=== PATIENT | female | born 1950 | race Caucasian/White ===

== ENCOUNTER 2016-10-16 11:33 | Outpatient (CLI) ==
[2014-08-14 11:02] VITALS: BMI 60.0
== END 2016-10-16 11:34 ==
LOC: AMBL 11:33
PROVIDERS: ATTEND Emergency Medicine
DX: R42 Dizziness and giddiness (principal); R05 Cough; R06.02 Shortness of breath; R50.9 Fever, unspecified; R53.1 Weakness; R41.0 Disorientation, unspecified; R63.0 Anorexia; R00.0 Tachycardia, unspecified; G20 Parkinson's disease; J44.9 Chronic obstructive pulmonary disease, unspecified; Z99.81 Dependence on supplemental oxygen

== ENCOUNTER 2016-11-16 12:15 | Outpatient (CLI) ==
[2014-08-14 11:02] VITALS: BMI 60.0
== END 2016-11-16 12:16 ==
LOC: AMBL 12:15
PROVIDERS: ATTEND Emergency Medicine
DX: R42 Dizziness and giddiness (principal); G20 Parkinson's disease; J44.9 Chronic obstructive pulmonary disease, unspecified; Z99.81 Dependence on supplemental oxygen; W19.XXXA Unspecified fall, initial encounter

== ENCOUNTER 2016-12-30 15:48 | Outpatient (CLI) ==
[2014-08-14 11:02] VITALS: BMI 60.0
== END 2016-12-30 15:49 | disposition home or self-care (01) ==
LOC: AMBL 15:48
PROVIDERS: ATTEND Internal Medicine
DX: R53.1 Weakness (principal); R10.30 Lower abdominal pain, unspecified; R10.2 Pelvic and perineal pain; R39.198 Other difficulties with micturition; R82.99 Other abnormal findings in urine; R00.0 Tachycardia, unspecified; R53.83 Other fatigue; G20 Parkinson's disease

== ENCOUNTER 2017-02-18 11:08 | Outpatient (CLI) ==
[2014-08-14 11:02] VITALS: BMI 60.0
== END 2017-02-18 11:09 | disposition home or self-care (01) ==
LOC: AMBL 11:08
PROVIDERS: ATTEND Emergency Medicine
DX: R26.2 Difficulty in walking, not elsewhere classified (principal); R41.82 Altered mental status, unspecified; M79.605 Pain in left leg; M79.604 Pain in right leg; R25.2 Cramp and spasm; T50.905A Adverse effect of unspecified drugs, medicaments and biological substances, initial encounter; F03.90 Unspecified dementia, unspecified severity, without behavioral disturbance, psychotic disturbance, mood disturbance, and anxiety; G20 Parkinson's disease

== ENCOUNTER → 2017-04-07 | Outpatient (POV) | payer OTHER ==
[2014-08-14 11:02] VITALS: BMI 60.0
== END ==
LOC: OUTPT 00:01
PROVIDERS: ATTEND Otolaryngology
DX: R42 Dizziness and giddiness (principal)
CPT/HCPCS: 92557; 92567

== ENCOUNTER 2018-01-24 13:37 | Emergency (ER) ==
[2018-01-24 13:40] VITALS: BP 120/64; TEMP 97; BMI 49.5
--- NOTE | 2018-01-24 15:23 | ED.PDOC ---
General ED Provider: Dr. MELA MEMBRENO Chief Complaint: Urinary Problem Stated Complaint: suprapubic pain Time Seen by Physician: 13:39 (suprapubic pain with urinary symptoms) Mode of Arrival: Wheelchair Information Source: Patient Exam Limitations: No limitations Primary Care Provider: EYAL JONES Nursing and Triage Documentation Reviewed and Agree: Yes Reviewed sepsis parameters & appropriate labs ordered?: Yes System Inflammatory Response Syndrome: Not Applicable Sepsis Protocol: For patient's 13 years and over: Temp is 96.8 and below OR 101 and greater Pulse >90 BPM Resp >20/minute Acutely Altered Mental Status Are patient's symptoms suggestive of a new infection, such as: -Pneumonia -Skin, Soft Tissue -Endocarditis -UTI -Bone, Joint Infection -Implantable Device -Acute Abdominal Infection -Wound Infection -Meningitis -Blood Stream Catheter Infection -Unknown GI Complaint Exam - Abdominal Pain Complaint/Exam Onset: Gradual Duration: 1week Symptoms Are: Still present Timing: Intermittent Initial Severity: Mild Current Severity: Mild Location of Pain: Discrete Radiates To: Denies: Chest, Back, Flank, LLQ, RLQ, Inguinal Character: Reports: Burning. Denies: Aching, Throbbing Aggravating: Reports: None Alleviating: Reports: None Associated Signs and Symptoms: Reports: Dysuria. Denies: Diaphoresis, Fever, Cough, Chest pain, Dizziness, Back pain, Constipation, Blood in stool, Urinary frequency, Decreased urine output, Decreased appetite, Vaginal bleeding, Vaginal discharge, Nausea, Vomiting, Diarrhea, Sore throat, Decreased activity Related History: Reports: Similar episode AAA Risk Factors: Reports: None Cardiac Risk Factors: Reports: None Ovarian Torsion Risk Factors: Reports: None Review of Systems - Review Of Systems Constitutional: Reports: No symptoms Eyes: Reports: No symptoms Ears, Nose, Mouth, Throat: Reports: No symptoms Respiratory: Reports: No symptoms Cardiac: Reports: No symptoms GI: Reports: Abdominal pain : Reports: Dysuria Musculoskeletal: Reports: No symptoms Skin: Reports: No symptoms Neurological: Reports: No symptoms Endocrine: Reports: No symptoms Hematologic/Lymphatic: Reports: No symptoms All Other Systems: Reviewed and Negative Past Medical History - Past Medical History Previously Healthy: No Endocrine: Reports: Hypothyroid, Dyslipidemia Cardiovascular: Reports: None Respiratory: Reports: None Hematological: Reports: None Gastrointestinal: Reports: GERD Genitourinary: Reports: None Neuro/Psych: Reports: Migraine, Anxiety, Depression, Parkinson's Musculoskeletal: Reports: None Cancer: Reports: None Last Menstrual Period: n/a - Surgical History General Surgical History: Reports: None - Family History Family History: Reports: None - Social History Smoking Status: Current every day smoker Hx Substance Use: No Alcohol Screening: None Physical Exam - Physical Exam Appearance: Well-appearing, No pain distress, Well-nourished Eyes: GIRMA, EOMI, Conjunctiva clear ENT: Ears normal, Nose normal, Oropharynx normal Respiratory: Airway patent, Breath sounds clear, Breath sounds equal, Respirations nonlabored Cardiovascular: RRR, Pulses normal, No rub, No murmur GI/: Soft, Nontender, No masses, Bowel sounds normal, No Organomegaly Musculoskeletal: Normal strength, ROM intact, No edema, No calf tenderness Skin: Warm, Dry, Normal color Neurological: Sensation intact, Motor intact, Reflexes intact, Cranial nerves intact, Alert, Oriented Psychiatric: Affect appropriate, Mood appropriate Critical Care Note - Critical Care Note Total Time (mins): 0 Course - Course Hematology/Chemistry: 01/24/18 14:15 01/24/18 14:15 Orders, Labs, Meds: Lab Review 01/24/18 01/24/18 01/24/18 13:55 14:15 14:15 WBC 9.17 RBC 4.30 Hgb 12.4 Hct 38.6 MCV 89.8 MCH 28.8 MCHC 32.1 RDW Coeff of Staci 14.6 Plt Count 254 Immature Gran % (Auto) 0.3 Neut % (Auto) 60.1 Lymph % (Auto) 29.6 [place] % (Auto) 6.8 Eos % (Auto) 2.5 Baso % (Auto) 0.7 Immature Gran # (Auto) 0.0 Neut # (Auto) 5.5 Lymph # (Auto) 2.7 [place] # (Auto) 0.6 Eos # (Auto) 0.2 Baso # (Auto) 0.1 Sodium 138 Potassium 4.7 Chloride 100 Carbon Dioxide 29 Anion Gap 13.7 BUN 15 Creatinine 0.91 Estimated GFR (MDRD) 62.00 BUN/Creatinine Ratio 16.48 Glucose 100 Calcium 9.0 Total Bilirubin 0.2 AST 12 L ALT 9 L Alkaline Phosphatase 110 Total Protein 7.4 Albumin 3.1 L Globulin 4.3 Albumin/Globulin Ratio 0.72 Urine Color Yellow Urine Clarity Clear Urine pH 7.0 Ur Specific [place] 1.020 Urine Protein Negative Urine Glucose (UA) Negative Urine Ketones Negative Urine Blood Trace-lysed Urine Nitrite Negative Urine Bilirubin Negative Urine Urobilinogen 0.2 Ur Leukocyte Esterase Negative Urine Microscopic RBC 0-2 Ur Squamous Epith Cells 5-10 Orders Category Date Time Status CBC W/ AUTO DIFF Stat LAB 01/24/18 14:07 Ordered COMPREHENSIVE METABOLIC PANEL Stat LAB 01/24/18 14:07 Ordered URINALYSIS C & S IF INDICATED Stat LAB 01/24/18 14:[address] ABDOMEN/PELVIS WO CONTRAST Stat RADS 01/24/18 14:07 Ordered Vital Signs: Temp Pulse Resp BP Pulse Ox 01/24/18 13:38 97.0 F L 101 H 16 120/64 94 L Departure - Departure Time of Disposition: 16:00 Disposition: HOME SELF-CARE Discharge Problem: Urinary symptoms Instructions: Dysuria (ED) Condition: Good Pt referred to PMD for follow-up: Yes IPMP verified?: No Additional Instructions: Please call your Family Physician as soon as possible to schedule a follow-up appointment. Allergies/Adverse Reactions: Allergies Sulfa (Sulfonamide Antibiotics) Adverse Reaction (Verified 01/24/18 13:40) sulfamethoxazole [From Bactrim] Adverse Reaction (Verified 01/24/18 13:40) trimethoprim [From Bactrim] Adverse Reaction (Verified 01/24/18 13:40) Home Medications: Ambulatory Orders Carbidopa/Levodopa [Sinemet 25-100 mg Tablet] 1 each PO QID 11/15/13 Dicyclomine HCl 20 mg PO QID 11/15/13 Duloxetine HCl 60 mg PO DAILY 11/15/13 Furosemide [Lasix] 40 mg PO PRN PRN 11/15/13 Levothyroxine Sodium [Synthroid] 112 mcg PO QDAC 11/15/13 Meclizine HCl [Antivert] 1 tab PO TID 11/15/13 Montelukast Sodium [Singulair] 10 mg PO DAILY 11/15/13 Ondansetron HCl [Zofran] 4 mg PO BID 11/15/13 Oxycodone HCl/Acetaminophen [Percocet 10-325 mg Tablet] 1 each PO QID PRN Simvastatin 20 mg PO DAILY 11/15/13 Sumatriptan Succinate [Imitrex] 100 mg PO BID PRN 11/15/13 Tizanidine HCl [Zanaflex] 4 mg PO TID 11/15/13 Amitriptyline HCl [Elavil] 25 mg PO TID 03/29/14 Potassium Chloride [Micro-K Cap] 10 meq PO TID 03/29/14 Albuterol Sulfate [Proair Hfa] 2 puff IH Q6H PRN 01/24/18 Fwoel-K-Ehhvgguegexaq [Beano] 1 each PO TID 01/24/18 Alprazolam [Xanax] 1 mg PO QID 01/24/18 Amitriptyline HCl 50 mg PO BEDTIME 01/24/18 Diphenhydramine HCl [Benadryl] 25 mg PO QID 01/24/18 Esomeprazole Magnesium [Nexium] 40 mg PO BID 01/24/18 Lamotrigine [Lamictal] 50 mg PO BID 01/24/18 Magnesium 250 mg PO TID 01/24/18 Pregabalin [Lyrica] 75 mg PO BID 01/24/18 Tamsulosin HCl [Flomax] 0.4 mg PO DAILY 01/24/18 Disposition Discussed With: Patient
--- NOTE | 2018-01-24 16:02 | CT ---
EXAM: CT abdomen pelvis without contrast HISTORY: Pain, suprapubic, right flank pain COMPARISON: 11/15/2013 TECHNIQUE: CT abdomen pelvis performed without intravenous contrast. Coronal and sagittal reformatt ed images obtained. FINDINGS: Subsegmental atelectasis and/or scarring right lung base. No free air. Degenerative trevizo ge in the spine. There is cirrhotic and erosive change L5-S1. Old left rib fracture noted with inco mplete union. Endplate and sclerotic changes of L5-S1.. Heart normal in size. Evaluation organ pare nchyma limited without contrast. Liver unremarkable. Patient status post cholecystectomy. Pancreas unremarkable. Granulomas calcification spleen. Spleen otherwise unremarkable. The adrenals unremar kable. No hydronephrosis or nephrolithiasis. No calculi visualized in normal course of the ureters. Bladder only minimally distended and poorly evaluated, grossly unremarkable. Aorta normal in calib er. Moderate atherosclerosis. Stomach appears normal. Duodenal diverticulum. No dilated loops sma ll bowel. Patient status post appendectomy. Colon unremarkable. Moderate fat-containing periumbili pat hernia. IMPRESSION: 1. Degenerative changes in the spine. Additionally, there is sclerotic and erosive change at L5-S1. This may be degenerative; however, this could also be due to diskitis/osteomyelitis. Findings can be correlate with MRI lumbar spine. 2. No hydronephrosis or nephrolithiasis 3. Duodenal diverticulum. 4. Moderate fat-containing periumbilical hernia. Report faxed
== END 2018-01-24 15:59 | disposition home or self-care (01) ==
LOC: ED 13:37
DX: R30.0 Dysuria (principal); R10.30 Lower abdominal pain, unspecified; E03.9 Hypothyroidism, unspecified; E78.5 Hyperlipidemia, unspecified; F17.210 Nicotine dependence, cigarettes, uncomplicated; Z79.899 Other long term (current) drug therapy
CPT/HCPCS: 36415; 80053; 81001; 85025; 99283

== ENCOUNTER 2018-03-10 11:35 | Outpatient (CLI) | END 2018-03-10 11:36 | disposition home or self-care (01) | LOC: LAB 11:35 | PROVIDERS: ATTEND Nurse Practitioner Family | DX: E03.9 Hypothyroidism, unspecified (principal); R53.83 Other fatigue; Z11.59 Encounter for screening for other viral diseases | CPT/HCPCS: 36415; 80053; 80061; 84439; 84443; 85025; 86803; 87522 ==

== ENCOUNTER 2018-10-10 07:08 | Day surgery (SDC) ==
[2018-10-10] MEDS ORDERED: BSS WITH EPINEPHRINE OP ONE (08:16)
[2018-10-10] MEDS ORDERED: BETADINE OPTH PREP OP ONE (08:16)
[2018-10-10] MEDS ORDERED: DIAMOX PO STA (08:16)
[2018-10-10] MEDS ORDERED: LIDOCAINE 1% 20 ML MDV ID STA (08:16)
[2018-10-10] MEDS ORDERED: LIDOCAINE HCL 1% SDV INJ PRN (08:16)
[2018-10-10] MEDS: AK-DILATE 10% OPTH SOL OP PRN ×3 (08:20→08:30)
[2018-10-10] MEDS: TETRACAINE 0.5% UNIT-DOSE OP PRN ×5 (08:20→10:11)
[2018-10-10] MEDS: OCUFEN 0.03% OPTH SOL OP PRN ×3 (08:20→08:50)
[2018-10-10] MEDS: CYCLOGYL 2% OPTH OP PRN ×3 (08:20→08:30)
[2018-10-10 08:42] VITALS: TEMP 97.8
[2018-10-10] MEDS ORDERED: VERSED ONE (09:50)
[2018-10-10] MEDS ORDERED: PRED FORTE 1% OP PRN (10:21)
[2018-10-10] MEDS ORDERED: DIAMOX ONE (11:15)
--- NOTE | 2018-10-10 13:44 | OP ---
PREOPERATIVE DIAGNOSIS: CATARACT EXTRACTION WITH IOL RIGHT EYE. POSTOPERATIVE DIAGNOSIS: SAME. OPERATION PHACOEMULSIFICATION ASPIRATION OF CATARACT RIGHT EYE. PLACEMENT OF POSTERIOR CHAMBER LENS. PHACO TIME 12.4 SECONDS AT 4.0% POWER. LENS MODEL TECNIS [id number]. DIOPTER +22.0D. TECHNIQUE: CLEAR CORNEA. ANESTHESIA: TOPICAL ANESTHESIA W/ANESTHESIA MONITORING. OPERATIVE REPORT: Topical anesthesia consisting of Tetracaine was applied to the cornea and Xylocaine Methyl Paraben free of MFP was injected intracamerally into the anterior chamber. The patient was then brought into the operating room , prepped and draped in the usual ophthalmic manner. A lid speculum was placed and the operating microscope was used. A paracentesis was made at the 3 o' clock position. A clear corneal incision was made just out to the limbus. The anterior chamber was entered just inside the clear cornea. Viscoelastic was injected into the anterior chamber. A capsulotomy was performed with a bent # 27 gauge needle. Phacoemulsification was then performed in the posterior chamber. After completion of the phacoemulsification, residual cortical material was aspirated with the irrigation-aspiration system. The posterior capsule was polished. Viscoelastic was injected into the anterior and posterior chambers to inflate the capsular bag. Lens were placed via an Unfolder system and stabilized in the bag. Viscoelastic was removed from the anterior chamber. The wound was checked for any leakage. The four sponges were removed from the fornix. Topical antibiotic steroid and nonsteroidal drops were also applied to the cornea. A Allen shield was applied. The patient left the operating room in good condition without any complications. OF NOTE: The patient is on Flomax. No iris retractor was used. INTRAOPERATIVE MEDICATIONS: Xylocaine Methyl Paraben Free MPF MTDD
[2018-10-10 16:59] VITALS: BP 136/82
== END 2018-10-10 11:30 | disposition home or self-care (01) ==
LOC: SURG 07:08
PROVIDERS: ATTEND Ophthalmology
DX: H25.13 Age-related nuclear cataract, bilateral (principal)

== ENCOUNTER 2018-11-14 06:56 | Day surgery (SDC) ==
[2018-11-14] MEDS: CYCLOGYL 2% OPTH OP PRN ×3 (07:30→07:40)
[2018-11-14] MEDS: OCUFEN 0.03% OPTH SOL OP PRN ×3 (07:30→08:00)
[2018-11-14] MEDS: AK-DILATE 10% OPTH SOL OP PRN ×3 (07:30→07:40)
[2018-11-14] MEDS: TETRACAINE 0.5% UNIT-DOSE OP PRN ×5 (07:30→08:12)
[2018-11-14] MEDS ORDERED: BSS WITH EPINEPHRINE OP ONE (07:42)
[2018-11-14] MEDS ORDERED: DIAMOX PO STA (07:42)
[2018-11-14] MEDS ORDERED: LIDOCAINE 1% 20 ML MDV ID STA (07:42)
[2018-11-14] MEDS ORDERED: LIDOCAINE HCL 1% SDV INJ PRN (07:42)
[2018-11-14 07:46] VITALS: TEMP 97.6
[2018-11-14] MEDS ORDERED: SUBLIMAZE ONE (08:10)
[2018-11-14] MEDS ORDERED: VERSED ONE (08:10)
[2018-11-14] MEDS ORDERED: DIPRIVAN 20 ML VIAL IVP ONE (08:10)
[2018-11-14] MEDS ORDERED: PRED FORTE 1% OP PRN (11:00)
[2018-11-14] MEDS ORDERED: BETADINE OPTH PREP OP ONE (11:22)
[2018-11-14 11:29] VITALS: BP 132/79
--- NOTE | 2018-11-15 09:55 | OP ---
PREOPERATIVE DIAGNOSIS: ADVANCED NUCLEAR SCLEROTIC CATARACT, LEFT EYE POSTOPERATIVE DIAGNOSIS: SAME. OPERATION PHACOEMULSIFICATION ASPIRATION OF CATARACT LEFT EYE. PLACEMENT OF POSTERIOR CHAMBER LENS. PHACO TIME 23.6 SECONDS AT 11.0% POWER. LENS MODEL TECNIS [id number]. DIOPTER +23.0D. TECHNIQUE: CLEAR CORNEA. ANESTHESIA: TOPICAL ANESTHESIA W/ANESTHESIA MONITORING. OPERATIVE REPORT: Topical anesthesia consisting of Tetracaine was applied to the cornea and Xylocaine Methyl Paraben free of MFP was injected intracamerally into the anterior chamber. The patient was then brought into the operating room , prepped and draped in the usual ophthalmic manner. A lid speculum was placed and the operating microscope was used. A paracentesis was made at the 3 o' clock position. A clear corneal incision was made just out to the limbus. The anterior chamber was entered just inside the clear cornea. Viscoelastic was injected into the anterior chamber. A capsulotomy was performed with a bent # 27 gauge needle. Phacoemulsification was then performed in the posterior chamber. After completion of the phacoemulsification, residual cortical material was aspirated with the irrigation-aspiration system. The posterior capsule was polished. Viscoelastic was injected into the anterior and posterior chambers to inflate the capsular bag. Lens were placed via an Unfolder system and stabilized in the bag. Viscoelastic was removed from the anterior chamber. The wound was checked for any leakage. The four sponges were removed from the fornix. Topical antibiotic steroid and nonsteroidal drops were also applied to the cornea. A Allen shield was applied. The patient left the operating room in good condition without any complications. INTRAOPERATIVE MEDICATIONS: Xylocaine Methyl Paraben Free MPF MTDD
== END 2018-11-14 09:30 | disposition home or self-care (01) ==
LOC: SURG 06:56
PROVIDERS: ATTEND Ophthalmology
DX: H25.12 Age-related nuclear cataract, left eye (principal)

== ENCOUNTER 2018-11-17 17:32 | Outpatient (CLI) | payer OTHER | END 2018-11-17 18:20 | disposition short-term general hospital (02) | LOC: AMBL 17:32 | PROVIDERS: ATTEND Emergency Medicine | DX: S09.90XA Unspecified injury of head, initial encounter (principal); M54.2 Cervicalgia; M54.9 Dorsalgia, unspecified; K21.9 Gastro-esophageal reflux disease without esophagitis; G20 Parkinson's disease; W19.XXXA Unspecified fall, initial encounter; Z99.81 Dependence on supplemental oxygen ==

== ENCOUNTER 2024-04-20 13:39 | Observation (INO) ==
--- NOTE | 2024-04-20 14:48 | ED.PDOC ---
General ED Provider: Dr. MELA CLARKE MD Chief Complaint: Non-specific Complaint Stated Complaint: Patient with history of COPD, Parkinson's, morbid obesity, chronic kidney disease chronic low back pain complains of having a rash over her abdominal area surrounding her umbilicus for the past week drainage associated with chills. Patient complains of periumbilical abdominal pain denies nausea, vomiting, urinary symptoms. Time Seen by Provider: 04/20/24 14:38 Mode of Arrival: Walk-In Information Source: Patient Exam Limitations: Clinical condition Primary Care Provider: TESS LANDAVERDE PA-C Nursing and Triage Documentation Reviewed and Agree: Yes What is Opioid Naive?: *Opioid Naive implies the patient is not already taking opioids or not chronically receiving opioids on a daily basis. *PRN dosing is not "usually" associated with tolerance. *Patients are at higher risk of over-sedation and aspiration. What is Opioid Tolerant?: *Opioid Tolerance implies less than the expected response to an opioid. *Acquired tolerance is defined by the patient taking 60mg of oral morphine daily (or equianalgesic dose of another opioid) for 1 week or more. *Often associated with chronic pain. *May take more than usual dose to achieve desired pain control. Review of Systems Review Of Systems Constitutional: Reports Chills Eyes: Reports No symptoms Ears, Nose, Mouth, Throat: Reports No symptoms Respiratory: Reports No symptoms Cardiac: Reports No symptoms GI: Reports Abdominal pain (Periumbilical abdominal pain periumbilical rash with ulcerations) : Reports No symptoms Musculoskeletal: Reports No symptoms Skin: Reports Other ( periumbilical rash with ulcerations) Neurological: Reports No symptoms Endocrine: Reports No symptoms Hematologic/Lymphatic: Reports No symptoms All Other Systems: Reviewed and Negative [facility] Medical History (Updated 04/20/24 @ 16:58 by MELA CLARKE MD) Parkinson disease G20 - Parkinson's disease (ICD-10) Chronic obstructive pulmonary disease for 5 years J44.9 - Chronic obstructive pulmonary disease, unspecified (ICD-10) Hyperlipidemia for years E78.5 - Hyperlipidemia, unspecified (ICD-10) Heart disease I51.9 - Heart disease, unspecified (ICD-10) Acute arthritis M19.90 - Unspecified osteoarthritis, unspecified site (ICD-10) Family History Mother Hypertension, Onset Age: 30 Other Seasonal allergies Social History Smoking and tobacco status: Never smoker Substance use type: does not use Surgical History History of gastrointestinal surgery gallbladder age 22 Z98.890 - Other specified postprocedural states (ICD-10) History of tubal ligation 1971 Z98.51 - Tubal ligation status (ICD-10) Status post hysterectomy at age 22 Z90.710 - Acquired absence of both cervix and uterus (ICD-10) Back Female Reproductive History Menstrual Hx Hysterectomy: Yes Hx Tubal Ligation: No Physical Exam Physical Exam Appearance: Reports Well-appearing Ill-appearing: None Pain Distress: None Eyes: Reports GIRMA, EOMI and Conjunctiva clear ENT: Reports Ears normal, Nose normal and Oropharynx normal Neck: Supple Respiratory: Reports Airway patent, Breath sounds clear and Breath sounds equal Cardiovascular: Reports RRR, Pulses normal, No rub and No murmur GI/: Reports Soft and Other (There is periumbilical ulcerations with erythema measuring 15 x 18 cm. With moderate abdominal tenderness. There is no guarding. The tenderness is mild maximal.) Musculoskeletal: Reports Normal strength, ROM intact and No edema Skin: Reports Warm, Dry and Normal color Neurological: Reports Sensation intact, Motor intact, Cranial nerves intact, Alert and Oriented Psychiatric: Reports Affect appropriate and Mood appropriate Critical Care Note Critical Care Note Total Critical Care Time (mins): 30 Course Course 04/20/24 15:02 04/20/24 15:02 Orders, Labs, Meds: Lab Review 04/20/24 04/20/24 15:02 16:06 WBC 7.13 RBC 3.90 L Hgb 12.0 Hct 39.6 MCV 101.5 H MCH 30.8 MCHC 30.3 L RDW Coeff of Staci 14.2 Plt Count 232 Immature Gran % (Auto) 0.3 Neut % (Auto) 71.1 Lymph % (Auto) 18.5 Jack % (Auto) 7.3 Eos % (Auto) 2.2 Baso % (Auto) 0.6 Neut # (Auto) 5.1 Lymph # (Auto) 1.3 Jack # (Auto) 0.5 Eos # (Auto) 0.2 Baso # (Auto) 0.0 Immature Gran # (Auto) 0.0 PT 10.0 INR 0.96 Sodium 138.0 Potassium 4.07 Chloride 96.2 L Carbon Dioxide 36.7 H Anion Gap 9.17 BUN 11.0 Creatinine 0.84 Estimated GFR (MDRD) 67.00 BUN/Creatinine Ratio 13.09 Glucose 144.1 H Calcium 8.73 Total Bilirubin 0.30 AST 25.8 ALT 9.0 Alkaline Phosphatase 96.5 Total Protein 7.15 Albumin 3.75 Globulin 3.40 Albumin/Globulin Ratio 1.10 SARS CoV-2 RNA Rapid DARWIN Negative Orders Category Date Time Status BLOOD CULTURE (ED ONLY) Stat LAB 04/20/24 15:03 Received CBC W/ AUTO DIFF Stat LAB 04/20/24 15:02 Completed CMP [COMPREHENSIVE METABOLIC PANEL] Stat LAB 04/20/24 15:02 Completed COVID [SARS COV-2 RNA RAPID DARWIN] Stat LAB 04/20/24 16:06 Completed CULTURE WOUND [WOUND CULTURE] Stat LAB 04/20/24 14:40 Received PT WITH INR Stat LAB 04/20/24 15:02 Completed URINALYSIS C & S IF INDICATED Stat LAB 04/20/24 14:48 Uncollected Sodium Chloride 0.9% [Sodium Chloride] 1,000 ml Meds 04/20/24 14:49 Active IV 200 mls/hr Vancomycin/Water For Inj (Peg) [Vancomycin 1 Gram/200 Meds 04/20/24 14:49 Discontinued ml Premix] 1 gm in 200 ml IV ONCE CHEST, 1V AP ONLY Stat RADS 04/20/24 16:[address] ABDOMEN/PELVIS WO CONTRAST Stat RADS 04/20/24 14:48 Completed Medications Generic Name Dose Route Start Last Admin Trade Name Freq PRN Reason Stop Dose Admin Sodium Chloride 1,000 mls @ 200 mls/hr 04/20/24 14:49 04/20/24 16:07 Sodium Chloride IV 04/20/24 19:48 200 mls/hr .Q5H ONE Administration Discontinued Medications Generic Name Dose Route Start Last Admin Trade Name Freq PRN Reason Stop Dose Admin VANCOMYCIN/WATER FOR INJ (PEG) 1 gm in 200 mls @ 200 mls/hr 04/20/24 14:49 04/20/24 16:07 Vancomycin 1 Gram/200 Ml Premix IV 04/20/24 15:48 200 mls/hr ONCE ONE Administration Vital Signs: Temp Pulse Resp BP Pulse Ox 04/20/24 13:57 98.2 F 89 20 124/66 96 Discharge Plan Discharge Patient Disposition: PLACED OBSERVATION Discharge Problem: Abdominal wall cellulitis Prescriptions: No Action meclizine [Antivert] 25 MG tablet 1 tab PO BID montelukast [Singulair] 10 MG tablet 10 mg PO DAILY carbidopa-levodopa [Sinemet] 1 EACH tablet 1 ea PO QID sumatriptan succinate [Imitrex] 100 MG tablet 100 mg PO PRN Rx Instructions: at bedtime simvastatin 20 mg tablet 40 mg PO DAILY tizanidine 4 mg tablet 4 mg PO BEDTIME ondansetron 4 mg tablet,disintegrating 4 mg PO Q6H PRN (Reason: nausea and vomiting) Qty: 30 0RF esomeprazole magnesium [Nexium] 40 MG capsule,delayed release(DR/EC) 40 mg PO BID albuterol sulfate [ProAir HFA] 200 PUFF/8.5 GM HFA aerosol inhaler 2 puff inhalation Q6H PRN (Reason: shortness of air) Beano 150 UNIT tablet 1 ea PO TID multivitamin Tablet 1 tab PO DAILY gabapentin 800 mg Tablet 800 mg PO QID quetiapine 50 mg Tablet 100 mg PO BEDTIME Namzaric 28-10 mg Capsule,Sprinkle,Er 24hr 1 cap PO DAILY lorazepam 2 mg tablet 2 mg PO TID PRN (Reason: anxiety) metoprolol succinate 50 mg tablet extended release 24 hr 50 mg PO DAILY Patient Comments: TAKE 1 TABLET BY MOUTH EVERY DAY levothyroxine 112 mcg tablet 112 mcg PO DAILY Patient Comments: TAKE 1 TABLET BY MOUTH EVERY DAY duloxetine 30 mg capsule,delayed release(DR/EC) 30 mg PO DAILY nystatin 100,000 unit/gram ointment 1 applic topical 2XD PRN (Reason: wound care) (DME) OneTouch Ultra Test Strip MISCELLANEOUS DAILY dicyclomine 20 mg tablet 20 mg PO 4XD ergocalciferol (vitamin D2) 1,250 mcg (50,000 unit) capsule 1,250 mcg PO WEEKLY meloxicam 15 mg tablet 15 mg PO QDAY hydrocodone-acetaminophen 10-325 mg tablet 1 tab PO Q4-6H PRN (Reason: pain) Did you review [place] [employer] for ALL controlled substances?: No ED Provider: MELA CLARKE Condition: Stable Physician Progress Note: History obtained from the patient is history morbid obesity, Parkinson's, COPD, chronic kidney disease, patient complains having periumbilical rash with ulceration over the past week increasing in redness associated with chills/abdominal pain patient also complains of a chronic cough denies vomiting, diarrhea, urinary symptoms and fever. Patient given IV fluids normal saline 1 L at 200 mL/hour, After 2 sets of blood cultures vancomycin 1 g IV piggyback Zofran 4 mg, morphine sulfate 2 mg IV The abdominal pelvic CT scan without IV contrast consistent with subcutaneous edema over the lower abdominal soft tissues and abdominal pannus. There is no subcutaneous air or drainable fluid collection. There is no free air or free fluid. There is no bowel obstruction or acute inflammation. There are bandlike opacities in the right lung base adjacent to elevated right diaphragm. Pleural chest x-ray interpretation radiologist consistent with streaky markings in the right lower lobe and hemidiaphragm, stable no focal pneumonic infiltrate or pulmonary edema. Stable chronic changes Differential diagnosis: 1) abdominal wall cellulitis Discussed with hospitalist Michel Pedersen at [id number] for observation
[2024-04-20 15:07] LABS: BASOPHILS % (AUTO) 0.6 % (0.0-3.0); EOSINOPHILS # (AUTO) 0.2 K/ul (0.0-0.7); EOSINOPHILS % (AUTO) 2.2 % (0.0-7.0); HEMATOCRIT 39.6 % (37.0-47.0); IMMATURE GRANULOCYTE % (AUTO) 0.3 % (0.0-5.0); LYMPHOCYTES # (AUTO) 1.3 K/uL (0.60-3.4); LYMPHOCYTES % (AUTO) 18.5 (10.0-50.0); MEAN CORPUSCULAR HEMOGLOBIN 30.8 pg (27.0-31.0); MEAN CORPUSCULAR HGB CONC 30.3 (31.8-35.4); MEAN CORPUSCULAR VOLUME 101.5 fl (81.0-99.0); MONOCYTES # (AUTO) 0.5 K/uL (0.4-2.0); MONOCYTES % (AUTO) 7.3 (0-10); NEUTROPHILS # (AUTO) 5.1 K/ul (2.0-6.9); NEUTROPHILS % (AUTO) 71.1 % (42.2-75.2); PLATELET COUNT 232 10^3/uL (140-440); RDW COEFFICIENT OF VARIATION 14.2 % (11.6-14.8); WHITE BLOOD COUNT 7.13 K/ul (4.6-10.2)
[2024-04-20 15:20] LABS: ALBUMIN 3.75 g/dL (3.5-5.0); ALKALINE PHOSPHATASE 96.5 U/L (53-141); ASPARTATE AMINO TRANSFERASE 25.8 U/L (14-36); BILIRUBIN,TOTAL 0.3 mg/dL (0.2-1.3); CALCIUM 8.73 mg/dL (8.4-10.2); CHLORIDE 96.2 mmol/L (98-107); CREATININE 0.84 mg/dL (0.60-1.30); GLUCOSE 144.1 mg/dL (74-106); POTASSIUM 4.07 mmol/L (3.5-5.1); TOTAL PROTEIN 7.15 g/dL (6.3-8.2)
[2024-04-20 15:27] LABS: CARBON DIOXIDE 36.7 mmol/L (22-30.0)
--- NOTE | 2024-04-20 15:40 | CT ---
EXAM: CT ABDOMEN WITHOUT CONTRAST. CT PELVIS WITHOUT CONTRAST. HISTORY: Generalized abdominal pain. COMPARISON: 12/17/2019. TECHNIQUE: Multiple axial images of the abdomen and pelvis were obtained without intravenous contras t. Images were reformatted in the sagittal and coronal plane. FINDINGS: Please note that evaluation of the abdominal and pelvic structures is limited due to lack of intravenous contrast. Band-like opacities in the right lung base adjacent to the elevated right diaphragm. Heart is enlarg ed. Degenerative changes present in the spine and hips. Ankylosis across T12 and L1. Liver enlarged. Gallbladder absent. Pancreas, spleen, adrenal glands are unremarkable. No calcifie d renal stones or hydronephrosis detected. There is no bowel obstruction or acute inflammation. Appendix not seen. Uterus absent. Bladder normal. Suspect some pelvic floor prolapse. Fatty umbilical hernia axial image 67 without inflammation or bowel involvement. There is no free fl uid or free air. Atherosclerotic calcifications present without aneurysm. Subcutaneous edema over t he lower abdominal soft tissues and abdominal pannus. No subcutaneous air or drainable fluid collecti on. IMPRESSION: 1. Cellulitis of the anterior lower abdomen/ abdominal pannus. 2. Hepatomegaly. 3. Fatty umbilical hernia. All CT scans are performed using dose optimization techniques as appropriate to the performed exam an d include at least one of the following: Automated exposure control, adjustment of the mA and/or kV according t o size, and the use of iterative reconstruction technique.
[2024-04-20] MEDS: SODIUM CHLORIDE 1,000 ML IV ONE (16:07)
[2024-04-20] MEDS: VANCOMYCIN 1 GRAM/200 ML PREMIX 1 GM/200 ML BAG IV ONE ×2 (16:07→18:07)
[2024-04-20 16:25] LABS: SARS COV-2 RNA RAPID NAAT NEGATIVE (NEGATIVE)
--- NOTE | 2024-04-20 16:51 | DI ---
EXAM: CHEST RADIOGRAPH TECHNIQUE: Single frontal chest radiograph. HISTORY: Cough. COMPARISON: 11/03/2021. FINDINGS: Lungs/Pleura: Streaky markings in the right lower lobe may hemidiaphragm are stable. No focal pneumo mayito infiltrate or pulmonary edema. Calcified granuloma. Heart: Generous in size. Bones: Unremarkable. Other: None. IMPRESSION: 1. Stable chronic changes.
[2024-04-20] MEDS ORDERED: PHARM CONSULT:VANCO IV MAINTENANCE DOSING IV ONE (17:17)
[2024-04-20] MEDS ORDERED: TYLENOL PO PRN (17:17)
[2024-04-20] MEDS ORDERED: NYSTATIN CREAM TP PRN (17:19)
[2024-04-20 17:56] LABS: BILIRUBIN,URINE Negative (NEGATIVE); CLARITY,URINE Clear (CLEAR); COLOR,URINE Yellow (YELLOW); GLUCOSE, URINE (UA) Negative (NEGATIVE); KETONES,URINE Negative (NEGATIVE); LEUKOCYTE ESTERASE ,URINE Negative (NEGATIVE); NITRITE,URINE Negative (NEGATIVE); PH,URINE 7.5 (5-9); PROTEIN,URINE Trace (NEGATIVE); URINE, BLOOD Negative (NEGATIVE)
[2024-04-20 18:02] LABS: AMORPHOUS SEDIMENT,UR 2+ (NOT PRESENT); BACTERIA,URINE TRACE (NOT PRESENT)
[2024-04-20 18:03] LABS: MUCUS,URINE 1+ (NOT PRESENT)
[2024-04-20] MEDS: NORCO 10-325 PO PRN (18:04)
[2024-04-20 18:44] VITALS: BMI 58.3
[2024-04-20] MEDS: NEURONTIN PO SCH (20:27)
[2024-04-20] MEDS: ANTIVERT PO SCH (20:28)
[2024-04-20] MEDS: BENTYL PO SCH (20:28)
[2024-04-20] MEDS: PROTONIX PO SCH (20:28)
[2024-04-20] MEDS: SEROQUEL PO SCH (20:29)
[2024-04-20] MEDS: ZANAFLEX PO SCH (20:29)
[2024-04-20] MEDS: NAMENDA PO SCH (20:29)
[2024-04-20] MEDS: SINEMET 25-100 PO SCH (21:58)
[2024-04-20] MEDS: ZOFRAN ODT PO PRN (22:00)
[2024-04-21] MEDS ORDERED: SODIUM CHLORIDE IV SCH (05:00)
[2024-04-21] MEDS ORDERED: VANCOMYCIN IV SCH (05:00)
[2024-04-21] MEDS: SYNTHROID PO SCH (05:50)
[2024-04-21] MEDS: ATIVAN PO PRN (05:57)
[2024-04-21] MEDS: VANCOMYCIN 1.25 GM/250 ML BAG 1.25 GM/250 ML BAG IV SCH ×2 (05:58→09:01)
[2024-04-21 06:05] LABS: BASOPHILS % (AUTO) 0.2 % (0.0-3.0); EOSINOPHILS # (AUTO) 0.2 K/ul (0.0-0.7); EOSINOPHILS % (AUTO) 3.4 % (0.0-7.0); HEMATOCRIT 36.9 % (37.0-47.0); HEMOGLOBIN 11.2 g/dl (12.0-16.0); IMMATURE GRANULOCYTE % (AUTO) 0.5 % (0.0-5.0); LYMPHOCYTES # (AUTO) 0.4 K/uL (0.60-3.4); LYMPHOCYTES % (AUTO) 6.7 (10.0-50.0); MEAN CORPUSCULAR HEMOGLOBIN 30.8 pg (27.0-31.0); MEAN CORPUSCULAR HGB CONC 30.4 (31.8-35.4); MEAN CORPUSCULAR VOLUME 101.4 fl (81.0-99.0); MONOCYTES # (AUTO) 0.4 K/uL (0.4-2.0); MONOCYTES % (AUTO) 6.5 (0-10); NEUTROPHILS # (AUTO) 5.3 K/ul (2.0-6.9); NEUTROPHILS % (AUTO) 82.7 % (42.2-75.2); PLATELET COUNT 213 10^3/uL (140-440); RDW COEFFICIENT OF VARIATION 14.1 % (11.6-14.8); RED BLOOD COUNT 3.64 10^6/ul (4.20-5.40); WHITE BLOOD COUNT 6.44 K/ul (4.6-10.2)
[2024-04-21 06:19] LABS: ALBUMIN 3.3 g/dL (3.5-5.0); ALKALINE PHOSPHATASE 82.9 U/L (53-141); ASPARTATE AMINO TRANSFERASE 22.6 U/L (14-36); BILIRUBIN,TOTAL 0.35 mg/dL (0.2-1.3); BLOOD UREA NITROGEN 12.3 mg/dL (7-17); CALCIUM 8.28 mg/dL (8.4-10.2); CARBON DIOXIDE 35.1 mmol/L (22-30.0); CHLORIDE 97.1 mmol/L (98-107); CREATININE 0.83 mg/dL (0.60-1.30); GLUCOSE 129.3 mg/dL (74-106); POTASSIUM 4.03 mmol/L (3.5-5.1); SODIUM 135.5 mmol/L (134.5-145); TOTAL PROTEIN 6.51 g/dL (6.3-8.2)
[2024-04-21] MEDS ORDERED: VANCOMYCIN 1 GRAM/200 ML PREMIX 1 GM/200 ML BAG IV SCH (09:00)
[2024-04-21] MEDS ORDERED: [UNRECOGNIZED DRUG - OTHER] PO SCH (09:00)
[2024-04-21] MEDS ORDERED: MEMANTINE DONEPEZIL PO SCH (09:00)
[2024-04-21] MEDS: CYMBALTA PO SCH (09:01)
[2024-04-21] MEDS: MOBIC PO SCH (09:01)
[2024-04-21] MEDS: NEURONTIN PO SCH ×2 (09:01→09:02)
[2024-04-21] MEDS: ARICEPT PO SCH (09:01)
[2024-04-21] MEDS: TOPROL XL PO SCH (09:02)
[2024-04-21] MEDS: PROTONIX PO SCH (09:13)
--- NOTE | 2024-04-21 11:30 | PCM ---
Date of Service Date Seen by Provider: 04/21/24 Time Seen by Provider: 08:50 Admit Day/Time Admission Date: 04/20/24 Reason for Admission Chief Complaint: ABDOMINAL WALL CELLULITIS Hospital Provider Hospital Provider: JASS CORONA, [facility] [place] Primary Care Physician Primary Care Physician: TESS LANDAVERDE PA-C History of Present Illness History of Present Illness: 73 yo female with pmh of COPD requiring 2L oxygen continuous, parkinson's, obesity, and hyperlipidemia presented to the ER with wound to her umbilicus. States that she initially had an area on her L breast that is healed now, but over the past 3 days the umbilicus became red and itchy. The last 2 days 3 small wounds developed and began draining with green discharge. Denies fever that she is aware of. Has not been seen by PCP. CT completed and showed cellulitis without abscess. Started on IV vancomycin, wound cultures and blood cultures obtained. Patient reports urinary urgency and dysuria. UA was negative. Reported usually requires culture to determine if UTI present. Admitted to med/surg observation. Case Discussed With Case Discussed With: Patient's case was discussed with the ER Physicians, Dr. King. [facility] Medical History Parkinson disease G20 - Parkinson's disease (ICD-10) Chronic obstructive pulmonary disease for 5 years J44.9 - Chronic obstructive pulmonary disease, unspecified (ICD-10) Hyperlipidemia for years E78.5 - Hyperlipidemia, unspecified (ICD-10) Heart disease I51.9 - Heart disease, unspecified (ICD-10) Acute arthritis M19.90 - Unspecified osteoarthritis, unspecified site (ICD-10) Surgical History History of gastrointestinal surgery gallbladder age 22 Z98.890 - Other specified postprocedural states (ICD-10) History of tubal ligation 1971 Z98.51 - Tubal ligation status (ICD-10) Status post hysterectomy at age 22 Z90.710 - Acquired absence of both cervix and uterus (ICD-10) Back Family History Mother Hypertension, Onset Age: 30 Other Seasonal allergies Social History Smoking and tobacco status: Never smoker Substance use type: does not use Allergies Allergies Allergy/AdvReac Type Severity Reaction Status Date / Time Sulfa (Sulfonamide AdvReac Itching Verified 04/20/24 14:11 Antibiotics) sulfamethoxazole AdvReac Itching Verified 04/20/24 14:11 [From Bactrim] trimethoprim [From Bactrim] AdvReac Swelling Verified 04/20/24 14:11 Current Medications Home Medications carbidopa 25 mg-levodopa 100 mg tablet (Sinemet) 1 ea PO QID 11/15/13 [History C onfirmed 04/20/24 Last Taken 04/20/24] meclizine 25 mg tablet (Antivert) 1 tab PO BID 11/15/13 [History Confirmed 04/20/24 Last Taken 04/20/24] montelukast 10 mg tablet (Singulair) 10 mg PO DAILY 11/15/13 [History Confirmed 04/20/24 Last Taken 04/20/24] sumatriptan succinate 100 mg tablet (Imitrex) 100 mg PO PRN migraine 11/15/13 [History Confirmed 04/20/24 Last Taken Unknown] albuterol sulfate 90 mcg/actuation aerosol inhaler (ProAir HFA) 2 puff inhalation Q6H PRN shortness of air 01/24/18 [History Confirmed 04/20/24 Last Taken Unknown] emarr-r-qiyfcqlombrjb 150 unit tablet (Beano) 1 ea PO TID 01/24/18 [History Confirmed 04/20/24 Last Taken 04/19/24] esomeprazole magnesium 40 mg capsule,delayed release (Nexium) 40 mg PO BID 01/24/18 [History Confirmed 04/20/24 Last Taken 04/19/24] gabapentin 800 mg tablet 800 mg PO QID 07/12/19 [History Confirmed 04/20/24 Last Taken 04/20/24] memantine ER 28 mg-donepezil 10 mg capsule sprinkle,ext.release 24 hr (Namzaric) 1 cap PO DAILY 07/12/19 [History Confirmed 04/20/24 Last Taken 04/20/24] multivitamin 1 tab PO DAILY 07/12/19 [History Confirmed 04/20/24 Last Taken Unknown] quetiapine 50 mg tablet 100 mg PO BEDTIME 07/12/19 [History Confirmed 04/20/24 Last Taken 04/19/24] duloxetine 30 mg capsule,delayed release 30 mg PO DAILY 03/20/21 [History Confirmed 04/20/24 Last Taken 04/19/24] levothyroxine 112 mcg tablet 112 mcg PO DAILY 03/20/21 [History Confirmed 04/20/24 Last Taken 04/20/24] metoprolol succinate 50 mg tablet,extended release 24 hr 50 mg PO DAILY 03/20/21 [History Confirmed 04/20/24 Last Taken 04/20/24] tizanidine 4 mg tablet 4 mg PO BEDTIME 04/25/21 [History Confirmed 04/20/24 Last Taken 04/19/24] hydrocodone 10 mg-acetaminophen 325 mg tablet 1 tab PO Q4-6H PRN pain 01/12/23 [History Confirmed 04/20/24 Last Taken 04/19/24] lorazepam 2 mg tablet 2 mg PO TID PRN anxiety 01/12/23 [History Confirmed 04/20/24 Last Taken 04/19/24] meloxicam 15 mg tablet 15 mg PO QDAY 01/12/23 [History Confirmed 04/20/24 Last Taken 04/19/24] simvastatin 20 mg tablet 40 mg PO DAILY 01/12/23 [History Confirmed 04/20/24 Last Taken 04/19/24] ondansetron 4 mg disintegrating tablet 4 mg PO Q6H PRN nausea and vomiting #30 tabs 03/23/24 [Rx Confirmed 04/20/24 Last Taken 04/19/24] blood sugar diagnostic (EvolvaTouch Ultra Test strips) 04/20/24 [History Confirmed 04/20/24 Last Taken Unknown] dicyclomine 20 mg tablet 20 mg PO 4XD 04/20/24 [History Confirmed 04/20/24 Last Taken 04/20/24] ergocalciferol (vitamin D2) 1,250 mcg (50,000 unit) capsule 1,250 mcg PO WEEKLY 04/20/24 [History Confirmed 04/20/24 Last Taken 04/20/24] Home Acetaminophen (Acetaminophen 325 Mg Tablet) 650 mg PO Q4H PRN PRN Reason: Mild Pain Hydrocodone Bitart/Acetaminophen (Hydrocodone Bit/Acetaminophen 10/325 Mg Table t) 1 tab PO Q4-6H PRN PRN Reason: Pain Last Admin: 04/21/24 10:14 Dose: 1 tab Carbidopa/Levodopa (Carbidopa/Levodopa 25/100 Tablet) 1 tab PO QID [facility] Last Admin: 04/21/24 09:02 Dose: 1 tab Dicyclomine HCl (Dicyclomine Hcl 10 Mg Capsule) 20 mg PO 4XD [facility] Last Admin: 04/21/24 09:01 Dose: 20 mg Donepezil HCl (Donepezil Hcl 10 Mg Tablet) 10 mg PO DAILY [facility] Last Admin: 04/21/24 09:01 Dose: 10 mg Duloxetine HCl (Duloxetine Hcl 30 Mg Capsule.Dr) 30 mg PO DAILY [facility] Last Admin: 04/21/24 09:01 Dose: 30 mg Erythromycin (Erythromycin 3.5 Gm Opth Oint) 1 applic EACHEYE Q8HR [facility] Stop: 04/24/24 11:29 Gabapentin (Gabapentin 100 Mg Capsule) 200 mg PO QID [facility] Last Admin: 04/21/24 09:01 Dose: 200 mg Gabapentin (Gabapentin 300 Mg Capsule) 600 mg PO QID [facility] Last Admin: 04/21/24 09:02 Dose: 600 mg VANCOMYCIN/WATER FOR INJ (PEG) (Vancomycin 1.25 Gm/250 Ml Bag) 1.25 gm in 250 mls @ 250 mls/hr IV Q12HR [facility] Stop: 04/24/24 04:59 Last Admin: 04/21/24 09:01 Dose: 250 mls/hr Levothyroxine Sodium (Levothyroxine Sodium 112 Mcg Tablet) 112 mcg PO DAILY@0630 [facility] Last Admin: 04/21/24 05:50 Dose: 112 mcg Lorazepam (Lorazepam 1 Mg Tablet) 2 mg PO TID PRN PRN Reason: Anxiety Last Admin: 04/21/24 05:57 Dose: 2 mg Meclizine HCl (Meclizine Hcl 25 Mg Tablet) 25 mg PO BID [facility] Last Admin: 04/21/24 09:02 Dose: 25 mg Meloxicam (Meloxicam 7.5 Mg Tablet) 15 mg PO DAILYWM2 [facility] Last Admin: 04/21/24 09:01 Dose: 15 mg Memantine (Memantine Hcl 10 Mg Tablet) 10 mg PO BID [facility] Last Admin: 04/21/24 09:01 Dose: 10 mg Metoprolol Succinate (Metoprolol Succinate 50 Mg Tab.Er.24h) 50 mg PO DAILY [facility] Last Admin: 04/21/24 09:02 Dose: 50 mg Montelukast Sodium (Montelukast Sodium 10 Mg Tablet) 10 mg PO QPM [facility] Nystatin (Nystatin 15 Gm Cream) 1 applic TP BID PRN PRN Reason: wound care Ondansetron HCl (Ondansetron Hcl 4 Mg Tab.Rapdis) 4 mg PO Q6H PRN PRN Reason: Nausea / Vomiting Last Admin: 04/21/24 05:51 Dose: 4 mg Pantoprazole Sodium (Pantoprazole Sodium 40 Mg Tablet.Dr) 40 mg PO BIDAC2 [facility] Last Admin: 04/21/24 09:13 Dose: 40 mg Quetiapine Fumarate (Quetiapine Fumarate 100 Mg Tablet) 100 mg PO BEDTIME [facility] Last Admin: 04/20/24 20:29 Dose: 100 mg Simvastatin (Simvastatin 10 Mg Tablet) 40 mg PO QPM [facility] Tizanidine HCl (Tizanidine Hcl 4 Mg Tablet) 4 mg PO BEDTIME [facility] Last Admin: 04/20/24 20:29 Dose: 4 mg Discontinued Medications Gabapentin (Gabapentin 100 Mg Capsule) 800 mg PO QID [facility] Last Admin: 04/20/24 20:27 Dose: 800 mg Sodium Chloride (Sodium Chloride) 1,000 mls @ 200 mls/hr IV .Q5H ONE Stop: 04/20/24 19:48 Last Infusion: 04/20/24 23:59 Dose: Infused VANCOMYCIN/WATER FOR INJ (PEG) (Vancomycin 1 Gram/200 Ml Premix) 1 gm in 200 ml s @ 200 mls/hr IV ONCE ONE Stop: 04/20/24 15:48 Last Admin: 04/20/24 16:07 Dose: 200 mls/hr VANCOMYCIN/WATER FOR INJ (PEG) (Vancomycin 1 Gram/200 Ml Premix) 1 gm in 200 mls @ 200 mls/hr IV DAILY [facility] Stop: 04/24/24 08:59 VANCOMYCIN/WATER FOR INJ (PEG) (Vancomycin 1 Gram/200 Ml Premix) 1 gm in 200 mls @ 200 mls/hr IV ONCE ONE Stop: 04/20/24 18:29 Last Admin: 04/20/24 18:07 Dose: 200 mls/hr Vancomycin HCl 2 gm/ Sodium (Chloride) 500 mls @ 250 mls/hr IV Q12H [facility] Stop: 04/24/24 04:59 VANCOMYCIN/WATER FOR INJ (PEG) (Vancomycin 1.25 Gm/250 Ml Bag) 1.25 gm in 250 mls @ 250 mls/hr IV Q12H [facility] Stop: 04/24/24 04:59 Last Admin: 04/21/24 09:03 Dose: Not Given Non-Formulary Medication (Memantine-Donepezil [Namzaric]) 1 cap PO DAILY [facility] Pantoprazole Sodium (Pantoprazole Sodium 40 Mg Tablet.) 40 mg PO BID [facility] Last Admin: 04/20/24 20:28 Dose: 40 mg Opioid Naive vs. Tolerant Does Patient Take Opioids?: Yes Is Patient Opioid Naive?: No What is Opioid Naive?: *Opioid Naive implies the patient is not already taking opioids or not chronically receiving opioids on a daily basis. *PRN dosing is not "usually" associated with tolerance. *Patients are at higher risk of over-sedation and aspiration. Is Patient Opioid Tolerant?: No What is Opioid Tolerant?: *Opioid Tolerance implies less than the expected response to an opioid. *Acquired tolerance is defined by the patient taking 60mg of oral morphine daily (or equianalgesic dose of another opioid) for 1 week or more. *Often associated with chronic pain. *May take more than usual dose to achieve desired pain control. Review of Systems Constitutional: Reports No symptoms Head: Reports Normocephalic Eyes: Reports No symptoms Ears: Reports No symptoms Nose: Reports No symptoms Mouth: Reports No symptoms Throat: Reports No symptoms Cardiovascular: Reports No symptoms Respiratory: Reports No symptoms Gastrointestinal: Reports No symptoms Genitourinary: Reports Dysuria Musculoskeletal: Reports No symptoms Dermatologic: Reports Skin Changes (wounds to umbilicus) Endocrine: Reports No symptoms Hematology: Reports No symptoms Immunology: Reports No symptoms Neurological: Reports No symptoms Psychiatric: Reports No symptoms Physical examination Most Recent Vital Signs: Most Recent Vital Signs Temperature 98.1 F 04/21/24 09:48 Temperature Source Temporal Artery Scan 04/21/24 09:48 Temperature Source Temporal Artery Scan 04/20/24 13:57 Pulse Rate 97 04/21/24 09:48 Respiratory Rate 17 04/21/24 09:48 Blood Pressure 109/61 04/21/24 09:48 Blood Pressure Mean 77 04/21/24 09:48 Blood Pressure Left Arm 120/60 04/20/24 17:43 Blood Pressure Location Left Radial Artery 04/21/24 09:48 Blood Pressure Position Sitting 04/21/24 09:48 O2 Sat by Pulse Oximetry 96 04/21/24 09:48 Oxygen Delivery Method Nasal Cannula 04/21/24 10:00 Oxygen Flow Rate 2 04/21/24 08:00 Height 5 ft 4 in 04/20/24 17:43 Weight 154.1 kg 04/20/24 17:43 Telemetry Type Remote Telemetry 04/21/24 07:00 Telemetry Monitoring Continues 04/21/24 07:00 Telemetry Heart Rate 96 04/21/24 07:00 EKG VT Interval 0.12 04/21/24 07:00 EKG QRS Interval 0.06 04/21/24 07:00 Telemetry Strip Reading sr 04/21/24 07:00 Appearance: Positive No Apparent Distress, Alert and Oriented x3 and Obese Skin: Positive Warm, Good Turgor and Erythema (3, 0.5 cm open areas surrounding umbilicus, erythematous surrounding, purulent discharge noted) HEENT: Positive Normocephalic Neck: Positive Supple and Midline Trachea Chest/Lungs: Positive Symmetrical With Equal Breath Sounds, Clear to Auscultation Bilaterally and Good Air Movement all 4 Lung [place] Heart: Positive RRR and Pulses Normal GI/: Positive Soft, Nontender, Bowel Sounds Normal and No Distention Musculoskeletal: Positive Not Examined Extremities: Positive Intact Peripheral Pulses, Stable Joints Without Laxity and Good ROM in All Joints Neurological: Positive Sensation Intact, Motor intact, Alert and Oriented Labs This Visit Labs This Visit: Labs This Visit 04/20/24 04/20/24 04/20/24 15:02 16:06 17:47 WBC 7.13 RBC 3.90 L Hgb 12.0 Hct 39.6 MCV 101.5 H MCH 30.8 MCHC 30.3 L RDW Coeff of Staci 14.2 Plt Count 232 Immature Gran % (Auto) 0.3 Neut % (Auto) 71.1 Lymph % (Auto) 18.5 [place] % (Auto) 7.3 Eos % (Auto) 2.2 Baso % (Auto) 0.6 Neut # (Auto) 5.1 Lymph # (Auto) 1.3 [place] # (Auto) 0.5 Eos # (Auto) 0.2 Baso # (Auto) 0.0 Immature Gran # (Auto) 0.0 PT 10.0 INR 0.96 Sodium 138.0 Potassium 4.07 Chloride 96.2 L Carbon Dioxide 36.7 H Anion Gap 9.17 BUN 11.0 Creatinine 0.84 Estimated GFR (MDRD) 67.00 BUN/Creatinine Ratio 13.09 Glucose 144.1 H Calcium 8.73 Total Bilirubin 0.30 AST 25.8 ALT 9.0 Alkaline Phosphatase 96.5 Total Protein 7.15 Albumin 3.75 Globulin 3.40 Albumin/Globulin Ratio 1.10 Urine Color Yellow Urine Clarity Clear Urine pH 7.5 Ur Specific [place] 1.020 Urine Protein Trace H Urine Glucose (UA) Negative Urine Ketones Negative Urine Blood Negative Urine Nitrite Negative Urine Bilirubin Negative Urine Urobilinogen 1.0 H Ur Leukocyte Esterase Negative Ur Squamous Epith Cells 5-10 Amorphous Sediment 2+ Urine Bacteria Trace Urine Mucus 1+ SARS CoV-2 RNA Rapid DARWIN Negative 04/21/24 06:00 WBC 6.44 RBC 3.64 L Hgb 11.2 L Hct 36.9 L MCV 101.4 H MCH 30.8 MCHC 30.4 L RDW Coeff of Staci 14.1 Plt Count 213 Immature Gran % (Auto) 0.5 Neut % (Auto) 82.7 H Lymph % (Auto) 6.7 L [place] % (Auto) 6.5 Eos % (Auto) 3.4 Baso % (Auto) 0.2 Neut # (Auto) 5.3 Lymph # (Auto) 0.4 L [place] # (Auto) 0.4 Eos # (Auto) 0.2 Baso # (Auto) 0.0 Immature Gran # (Auto) 0.0 PT INR Sodium 135.5 Potassium 4.03 Chloride 97.1 L Carbon Dioxide 35.1 H Anion Gap 7.33 BUN 12.3 Creatinine 0.83 Estimated GFR (MDRD) 68.00 BUN/Creatinine Ratio 14.81 Glucose 129.3 H Calcium 8.28 L Total Bilirubin 0.35 AST 22.6 ALT 8.0 Alkaline Phosphatase 82.9 Total Protein 6.51 Albumin 3.30 L Globulin 3.21 Albumin/Globulin Ratio 1.02 Urine Color Urine Clarity Urine pH Ur Specific [place] Urine Protein Urine Glucose (UA) Urine Ketones Urine Blood Urine Nitrite Urine Bilirubin Urine Urobilinogen Ur Leukocyte Esterase Ur Squamous Epith Cells Amorphous Sediment Urine Bacteria Urine Mucus SARS CoV-2 RNA Rapid DARWIN Microbiology This Visit 04/20/24 14:40 Abdomen Wound Culture - Preliminary Imaging Imaging: EXAM: CT ABDOMEN WITHOUT CONTRAST. CT PELVIS WITHOUT CONTRAST. HISTORY: Generalized abdominal pain. COMPARISON: 12/17/2019. TECHNIQUE: Multiple axial images of the abdomen and pelvis were obtained without intravenous contrast. Images were reformatted in the sagittal and coronal plane. FINDINGS: Please note that evaluation of the abdominal and pelvic structures is limited due to lack of intravenous contrast. Band-like opacities in the right lung base adjacent to the elevated right diaphragm. Heart is enlarged. Degenerative changes present in the spine and hips. Ankylosis across T12 and L1. Liver enlarged. Gallbladder absent. Pancreas, spleen, adrenal glands are unremarkable. No calcified renal stones or hydronephrosis detected. There is no bowel obstruction or acute inflammation. Appendix not seen. Uterus absent. Bladder normal. Suspect some pelvic floor prolapse. Fatty umbilical hernia axial image 67 without inflammation or bowel involvement. There is no free fluid or free air. Atherosclerotic calcifications present without aneurysm. Subcutaneous edema over the lower abdominal soft tissues and abdominal pannus. No subcutaneous air or drainable fluid collection. IMPRESSION: 1. Cellulitis of the anterior lower abdomen/ abdominal pannus. 2. Hepatomegaly. 3. Fatty umbilical hernia. Review Statement Review Statement: I have independently reviewed and interpreted the labs/EKGs/imaging that were ordered by the ER provider. I have reviewed all outside records that are available currently in our EMR including imaging/notes/labs from previous visits. Plan Plan: 1. Umbilical cellulitis - vancomycin Q12H - pharmacy to dose, wound culture showing growth of gram negative rods, awaiting final report, wound care: clean with diluted betadine, apply adaptic, and absorbent dressing Q12H 2. Conjunctivitis, bilateral - erythromycin ointment Q8H to both eyes 3. Urinary symptoms - UA negative, urine culture ordered 4. COPD - not in exacerbation, continue home oxygen use at 2L, monitor 5. Hypothyroidism - chronic, continue home medications 6. Anxiety - chronic, continue home medications DVT Prophylaxis: Ambulation Time Spent: Greater than 80 minutes spent with patient, 50% of the time spent with this patient was devoted to counseling and coordination of care. [facility] minutes spent discussing advance care planning. Disposition: Admit to: Med/surg Observation DNI, CPR only Discussed Plan of Care with Dr. Bindu Sarkar. Medications Medication Orders: Medications Ordered Category Date Time Status Acetaminophen [Tylenol] Meds 04/20/24 17:17 Active 650 mg PO Q4H PRN Carbidopa/Levodopa [Sinemet 25-100] Meds 04/20/24 21:00 Active 1 tab PO QID Dicyclomine HCl [Bentyl] Meds 04/20/24 21:00 Active 20 mg PO 4XD Donepezil HCl [Aricept] Meds 04/21/24 09:00 Active 10 mg PO DAILY Duloxetine HCl [Cymbalta] Meds 04/21/24 09:00 Active 30 mg PO DAILY Erythromycin Opth Oint [Erythromycin] Meds 04/21/24 11:30 Active 1 applic EACHEYE Q8HR Gabapentin [Neurontin] Meds 04/21/24 09:00 Active 200 mg PO QID Gabapentin [Neurontin] Meds 04/21/24 09:00 Active 600 mg PO QID Hydrocodone Bit/Acetaminophen [[place] 10-325] Meds 04/20/24 17:19 Active 1 tab PO Q4-6H PRN Levothyroxine Sodium [Synthroid] Meds 04/21/24 06:30 Active 112 mcg PO DAILY@0630 Lorazepam [Ativan] Meds 04/20/24 17:19 Active 2 mg PO TID PRN Meclizine HCl [Antivert] Meds 04/20/24 21:00 Active 25 mg PO BID Meloxicam [Mobic] Meds 04/21/24 07:30 Active 15 mg PO DAILYWM2 Memantine HCl [Namenda] Meds 04/20/24 21:00 Active 10 mg PO BID Metoprolol Succinate [Toprol Xl] Meds 04/21/24 09:00 Active 50 mg PO DAILY Montelukast Sodium [Singulair] Meds 04/21/24 17:00 Active 10 mg PO QPM Nystatin [Nystatin Cream] Meds 04/20/24 17:19 Active 1 applic TP BID PRN Ondansetron [Zofran Odt] Meds 04/20/24 17:19 Active 4 mg PO Q6H PRN Pantoprazole Sodium [Protonix] Meds 04/21/24 09:00 Active 40 mg PO BIDAC2 Quetiapine Fumarate [Seroquel] Meds 04/20/24 21:00 Active 100 mg PO BEDTIME Simvastatin [Zocor] Meds 04/21/24 17:00 Active 40 mg PO QPM Tizanidine HCl [Zanaflex] Meds 04/20/24 21:00 Active 4 mg PO BEDTIME Vancomycin/Water For Inj (Peg) [Vancomycin 1.25 gm/250 Meds 04/21/24 09:00 Active ml Bag] 1.25 gm in 250 ml IV Q12HR
[2024-04-21] MEDS: ERYTHROMYCIN EACHEYE SCH (13:52)
[2024-04-21] MEDS: ZOCOR PO SCH (16:15)
[2024-04-21] MEDS: SINGULAIR PO SCH (16:15)
[2024-04-22 11:36] LABS: BASOPHILS % (AUTO) 0.2 % (0.0-3.0); EOSINOPHILS # (AUTO) 0.4 K/ul (0.0-0.7); EOSINOPHILS % (AUTO) 6.2 % (0.0-7.0); HEMATOCRIT 39.7 % (37.0-47.0); HEMOGLOBIN 11.5 g/dl (12.0-16.0); IMMATURE GRANULOCYTE % (AUTO) 0.5 % (0.0-5.0); LYMPHOCYTES # (AUTO) 0.6 K/uL (0.60-3.4); LYMPHOCYTES % (AUTO) 9.7 (10.0-50.0); MEAN CORPUSCULAR HEMOGLOBIN 29.9 pg (27.0-31.0); MEAN CORPUSCULAR VOLUME 103.4 fl (81.0-99.0); MONOCYTES # (AUTO) 0.4 K/uL (0.4-2.0); MONOCYTES % (AUTO) 6.8 (0-10); NEUTROPHILS # (AUTO) 4.8 K/ul (2.0-6.9); NEUTROPHILS % (AUTO) 76.6 % (42.2-75.2); PLATELET COUNT 169 10^3/uL (140-440); RED BLOOD COUNT 3.84 10^6/ul (4.20-5.40)
[2024-04-22 11:39] LABS: ALANINE AMINOTRANSFERASE 8.1 U/L (0-35); ALBUMIN 3.65 g/dL (3.5-5.0); ALKALINE PHOSPHATASE 72.9 U/L (53-141); ASPARTATE AMINO TRANSFERASE 31.9 U/L (14-36); BILIRUBIN,TOTAL 0.71 mg/dL (0.2-1.3); BLOOD UREA NITROGEN 10.2 mg/dL (7-17); CALCIUM 8.52 mg/dL (8.4-10.2); CARBON DIOXIDE 33.8 mmol/L (22-30.0); CHLORIDE 98.1 mmol/L (98-107); CREATININE 0.81 mg/dL (0.60-1.30); GLUCOSE 113.3 mg/dL (74-106); POTASSIUM 5.63 mmol/L (3.5-5.1); TOTAL PROTEIN 7.35 g/dL (6.3-8.2)
[2024-04-22] MEDS ORDERED: HUMULIN R (10ML) SUBCUT ONE (11:49)
--- NOTE | 2024-04-22 11:54 | PCM.PROG ---
Date/Time Seen Date Seen by Provider: 04/22/24 Time Seen by Provider: 09:30 Provider Provider: JASS CORONA, [facility] Chief Complaint Chief Complaint: ABDOMINAL WALL CELLULITIS Subjective Subjective: Mildly improving cellulitis. Drainage present. MRSA on wound culture. Difficulty getting labs this am. Patient reports generalized fatigue. Objective Appearance: Positive No Apparent Distress, Alert and Oriented x3 and Obese Chest/Lungs: Positive Symmetrical With Equal Breath Sounds, Clear to Auscultation Bilaterally and Good Air Movement all 4 Lung Christie Heart: Positive RRR and Pulses Normal GI/: Positive Soft, Nontender, Bowel Sounds Normal and No Distention Musculoskeletal: Positive Not Examined Neurological: Positive Sensation Intact, Motor intact, Alert and Oriented Additional Findings: erythematous area surrounding umbilicus, 3-4 areas open and draining with purulent discharge Vital Signs Vital Signs: Vital Signs: Last 24 Hours 04/21/24 12:00 04/21/24 13:00 04/21/24 14:00 Temperature Temperature Source Pulse Rate Respiratory Rate Blood Pressure Blood Pressure Mean Blood Pressure Location Blood Pressure Position O2 Sat by Pulse Oximetry Oxygen Delivery Method Nasal Cannula Nasal Cannula Nasal Cannula Oxygen Flow Rate Telemetry Type Telemetry Monitoring Telemetry Heart Rate EKG SD Interval EKG QRS Interval Telemetry Strip Reading 04/21/24 14:00 04/21/24 15:00 04/21/24 16:00 Temperature 97.5 F L Temperature Source Temporal Artery Scan Pulse Rate 95 Respiratory Rate 16 Blood Pressure 132/67 Blood Pressure Mean 88 Blood Pressure Location Left Radial Artery Blood Pressure Position Sitting O2 Sat by Pulse Oximetry 95 Oxygen Delivery Method Room Air Nasal Cannula Nasal Cannula Oxygen Flow Rate Telemetry Type Telemetry Monitoring Telemetry Heart Rate EKG SD Interval EKG QRS Interval Telemetry Strip Reading 04/21/24 16:58 04/21/24 18:00 04/21/24 18:00 Temperature 97.4 F L Temperature Source Temporal Artery Scan Pulse Rate 87 Respiratory Rate 16 Blood Pressure 123/65 Blood Pressure Mean 84 Blood Pressure Location Left Radial Artery Blood Pressure Position Sitting O2 Sat by Pulse Oximetry 96 Oxygen Delivery Method Nasal Cannula Nasal Cannula Room Air Oxygen Flow Rate Telemetry Type Telemetry Monitoring Telemetry Heart Rate EKG SD Interval EKG QRS Interval Telemetry Strip Reading 04/21/24 19:00 04/21/24 19:00 04/21/24 20:00 Temperature Temperature Source Pulse Rate Respiratory Rate Blood Pressure Blood Pressure Mean Blood Pressure Location Blood Pressure Position O2 Sat by Pulse Oximetry Oxygen Delivery Method Room Air Room Air Oxygen Flow Rate Telemetry Type Remote Telemetry Telemetry Monitoring Continues Telemetry Heart Rate 88 EKG SD Interval 0.12 EKG QRS Interval 0.10 Telemetry Strip Reading SR 04/21/24 20:00 04/21/24 20:39 04/21/24 21:00 Temperature 97.6 F Temperature Source Temporal Artery Scan Pulse Rate 84 Respiratory Rate 18 Blood Pressure 121/94 H Blood Pressure Mean 103 Blood Pressure Location Left Radial Artery Blood Pressure Position Sitting O2 Sat by Pulse Oximetry 95 Oxygen Delivery Method Nasal Cannula Nasal Cannula Nasal Cannula Oxygen Flow Rate 2 2 Telemetry Type Telemetry Monitoring Telemetry Heart Rate EKG SD Interval EKG QRS Interval Telemetry Strip Reading 04/21/24 22:00 04/21/24 23:00 04/22/24 00:00 Temperature Temperature Source Pulse Rate Respiratory Rate Blood Pressure Blood Pressure Mean Blood Pressure Location Blood Pressure Position O2 Sat by Pulse Oximetry Oxygen Delivery Method Nasal Cannula Nasal Cannula Nasal Cannula Oxygen Flow Rate Telemetry Type Telemetry Monitoring Telemetry Heart Rate EKG SD Interval EKG QRS Interval Telemetry Strip Reading 04/22/24 00:51 04/22/24 01:00 04/22/24 02:00 Temperature Temperature Source Pulse Rate 81 Respiratory Rate Blood Pressure Blood Pressure Mean Blood Pressure Location Blood Pressure Position O2 Sat by Pulse Oximetry Oxygen Delivery Method Nasal Cannula Nasal Cannula Oxygen Flow Rate 2 Telemetry Type Telemetry Monitoring Telemetry Heart Rate EKG SD Interval EKG QRS Interval Telemetry Strip Reading refused 04/22/24 02:00 04/22/24 03:00 04/22/24 04:00 Temperature Temperature Source Pulse Rate Respiratory Rate Blood Pressure Blood Pressure Mean Blood Pressure Location Blood Pressure Position O2 Sat by Pulse Oximetry Oxygen Delivery Method Nasal Cannula Nasal Cannula Nasal Cannula Oxygen Flow Rate Telemetry Type Telemetry Monitoring Telemetry Heart Rate EKG SD Interval EKG QRS Interval Telemetry Strip Reading 04/22/24 05:00 04/22/24 05:45 04/22/24 05:45 Temperature 96.9 F L Temperature Source Temporal Artery Scan Pulse Rate 80 Respiratory Rate 20 Blood Pressure 105/58 L Blood Pressure Mean 73 Blood Pressure Location Left Radial Artery Blood Pressure Position Supine O2 Sat by Pulse Oximetry 97 Oxygen Delivery Method Nasal Cannula Nasal Cannula Nasal Cannula Oxygen Flow Rate 2 Telemetry Type Telemetry Monitoring Telemetry Heart Rate EKG SD Interval EKG QRS Interval Telemetry Strip Reading 04/22/24 07:00 04/22/24 07:57 04/22/24 08:00 Temperature Temperature Source Pulse Rate Respiratory Rate Blood Pressure Blood Pressure Mean Blood Pressure Location Blood Pressure Position O2 Sat by Pulse Oximetry Oxygen Delivery Method Nasal Cannula Nasal Cannula Nasal Cannula Oxygen Flow Rate 2 Telemetry Type Telemetry Monitoring Telemetry Heart Rate EKG SD Interval EKG QRS Interval Telemetry Strip Reading 04/22/24 08:50 04/22/24 10:00 04/22/24 10:00 Temperature 98 F Temperature Source Temporal Artery Scan Pulse Rate 83 Respiratory Rate 18 Blood Pressure 120/92 H Blood Pressure Mean 101 Blood Pressure Location Left Arm Blood Pressure Position Sitting O2 Sat by Pulse Oximetry 95 Oxygen Delivery Method Nasal Cannula Nasal Cannula Nasal Cannula Oxygen Flow Rate 2 Telemetry Type Telemetry Monitoring Telemetry Heart Rate EKG SD Interval EKG QRS Interval Telemetry Strip Reading 04/22/24 10:55 04/22/24 11:52 Temperature Temperature Source Pulse Rate Respiratory Rate Blood Pressure Blood Pressure Mean Blood Pressure Location Blood Pressure Position O2 Sat by Pulse Oximetry Oxygen Delivery Method Nasal Cannula Nasal Cannula Oxygen Flow Rate Telemetry Type Telemetry Monitoring Telemetry Heart Rate EKG SD Interval EKG QRS Interval Telemetry Strip Reading Lab Results Lab Results: Lab Results: Last 24 Hours 04/22/24 04/22/24 11:23 08:50 WBC 6.30 RBC 3.84 L Hgb 11.5 L Hct 39.7 MCV 103.4 H MCH 29.9 MCHC 29.0 L RDW Coeff of Staci 14.0 Plt Count 169 Immature Gran % (Auto) 0.5 Neut % (Auto) 76.6 H Lymph % (Auto) 9.7 L [place] % (Auto) 6.8 Eos % (Auto) 6.2 Baso % (Auto) 0.2 Neut # (Auto) 4.8 Lymph # (Auto) 0.6 [place] # (Auto) 0.4 Eos # (Auto) 0.4 Baso # (Auto) 0.0 Immature Gran # (Auto) 0.0 Sodium 134.0 L Potassium 5.63 H Chloride 98.1 Carbon Dioxide 33.8 H Anion Gap 7.73 BUN 10.2 Creatinine 0.81 Estimated GFR (MDRD) 70.00 BUN/Creatinine Ratio 12.59 Glucose 113.3 H Calcium 8.52 Total Bilirubin 0.71 AST 31.9 ALT 8.1 Alkaline Phosphatase 72.9 Total Protein 7.35 Albumin 3.65 Globulin 3.70 Albumin/Globulin Ratio 0.98 Vancomycin Trough 16.148 Additional Comments Additional Comments: I have independently reviewed and interpreted the labs/EKGs/imaging ordered during this hospital stay. I have reviewed outside records that are available in our EMR that pertain to medical stay including imaging/notes/labs from previous visits. Active Medications Active Medications: Medications Generic Name Dose Route Start Last Admin Trade Name Freq PRN Reason Stop Dose Admin Acetaminophen 650 mg 04/20/24 17:17 Acetaminophen 325 Mg Tablet PO Q4H PRN Mild Pain Hydrocodone Bitart/Acetaminophen 1 tab 04/20/24 17:19 04/22/24 09:17 Hydrocodone Bit/Acetaminophen 10/325 Mg Tablet PO 1 tab Q4-6H PRN Administration Pain Calcium Gluconate 1,000 mg 04/22/24 11:49 Calcium Gluconate 10% 1,000 Mg/10 Ml Vial IVP 04/22/24 11:50 ONCE STA Carbidopa/Levodopa 1 tab 04/20/24 21:00 04/22/24 09:18 Carbidopa/Levodopa 25/100 Tablet PO 1 tab QID MIKEY Administration Dextrose 50 ml 04/22/24 11:49 Dextrose 50 % In Water 50 Ml Disp.Syrin IVP 04/22/24 11:50 ONCE ONE Dicyclomine HCl 20 mg 04/20/24 21:00 04/22/24 09:18 Dicyclomine Hcl 10 Mg Capsule PO 20 mg 4XD MIKEY Administration Donepezil HCl 10 mg 04/21/24 09:00 04/22/24 09:17 Donepezil Hcl 10 Mg Tablet PO 10 mg DAILY MIKEY Administration Duloxetine HCl 30 mg 04/21/24 09:00 04/22/24 09:18 Duloxetine Hcl 30 Mg Capsule. PO 30 mg DAILY MIKEY Administration Erythromycin 1 applic 04/21/24 11:30 04/22/24 05:13 Erythromycin 3.5 Gm Opth Oint EACHEYE 04/24/24 11:29 1 applic Q8HR MIKEY Administration Gabapentin 200 mg 04/21/24 09:00 04/22/24 09:18 Gabapentin 100 Mg Capsule PO 200 mg QID MIKEY Administration Gabapentin 600 mg 04/21/24 09:00 04/22/24 09:17 Gabapentin 300 Mg Capsule PO 600 mg QID MIKEY Administration VANCOMYCIN/WATER FOR INJ (PEG) 1.25 gm in 250 mls @ 250 mls/hr 04/21/24 09:00 04/22/24 11:04 Vancomycin 1.25 Gm/250 Ml Bag IV 04/24/24 04:59 250 mls/hr Q12HR MIKEY Administration Insulin Human Regular 10 unit 04/22/24 11:49 Insulin Regular, Human 100 Unit/Ml (10ml) Vial SUBCUT 04/22/24 11:50 ONCE ONE Levothyroxine Sodium 112 mcg 04/21/24 06:30 04/22/24 06:34 Levothyroxine Sodium 112 Mcg Tablet PO 112 mcg DAILY@0630 MIKEY Administration Lorazepam 2 mg 04/20/24 17:19 04/21/24 05:57 Lorazepam 1 Mg Tablet PO 2 mg TID PRN Administration Anxiety Meclizine HCl 25 mg 04/20/24 21:00 04/22/24 09:17 Meclizine Hcl 25 Mg Tablet PO 25 mg BID MIKEY Administration Meloxicam 15 mg 04/21/24 07:30 04/22/24 09:17 Meloxicam 7.5 Mg Tablet PO 15 mg DAILYWM2 MIKEY Administration Memantine 10 mg 04/20/24 21:00 04/22/24 09:17 Memantine Hcl 10 Mg Tablet PO 10 mg BID MIKEY Administration Metoprolol Succinate 50 mg 04/21/24 09:00 04/22/24 09:18 Metoprolol Succinate 50 Mg Tab.Er.24h PO 50 mg DAILY MIKEY Administration Montelukast Sodium 10 mg 04/21/24 17:00 04/21/24 16:15 Montelukast Sodium 10 Mg Tablet PO 10 mg QPM MIKEY Administration Ondansetron HCl 4 mg 04/20/24 17:19 04/21/24 17:22 Ondansetron Hcl 4 Mg Tab.Rapdis PO 4 mg Q6H PRN Administration Nausea / Vomiting Pantoprazole Sodium 40 mg 04/21/24 09:00 04/22/24 05:14 Pantoprazole Sodium 40 Mg Tablet.Dr PO 40 mg BIDAC2 MIKEY Administration Quetiapine Fumarate 100 mg 04/20/24 21:00 04/21/24 21:14 Quetiapine Fumarate 100 Mg Tablet PO 100 mg BEDTIME MIKEY Administration Simvastatin 40 mg 04/21/24 17:00 04/21/24 16:15 Simvastatin 10 Mg Tablet PO 40 mg QPM MIKEY Administration Tizanidine HCl 4 mg 04/20/24 21:00 04/21/24 21:14 Tizanidine Hcl 4 Mg Tablet PO 4 mg BEDTIME MIKEY Administration Plan Plan: 1. Umbilical cellulitis - vancomycin Q12H - pharmacy to dose, wound culture showing growth of gram negative rods, awaiting final report, wound care: clean with diluted betadine, apply adaptic, and absorbent dressing Q12H 2. Conjunctivitis, bilateral - Improving, erythromycin ointment Q8H to both eyes 3. Urinary symptoms - UA negative, urine culture negative 4. COPD - not in exacerbation, continue home oxygen use at 2L, monitor 5. Hypothyroidism - chronic, continue home medications 6. Anxiety - chronic, continue home medications 7. Hyperkalemia - 5.6 today, likely due to antidepressants/beta cesar, insulin, dextrose, and calcium gluconate ordered, recheck at 1800 DVT Prophylaxis: Ambulation Review Statement Review Statement: I have personally discussed and reviewed the patient's visit/currently labs/imaging/decision making with Dr. Sarkar, my supervising attending. Greater that 50 minutes spent with patient, 50% of the time spent with this patient was devoted to counseling and coordination of care.
[2024-04-22] MEDS: DEXTROSE 50%-WATER ABBOJECT IVP ONE (12:41)
[2024-04-22] MEDS: CALCIUM GLUCONATE 10% IVP STA (12:42)
[2024-04-22] MEDS: HUMULIN R (10ML) IVP ONE (12:48)
[2024-04-22 18:20] LABS: BLOOD UREA NITROGEN 10.3 mg/dL (7-17); CALCIUM 9.09 mg/dL (8.4-10.2); CARBON DIOXIDE 34.8 mmol/L (22-30.0); CHLORIDE 95.8 mmol/L (98-107); CREATININE 0.93 mg/dL (0.60-1.30); GLUCOSE 114.5 mg/dL (74-106); POTASSIUM 4.55 mmol/L (3.5-5.1)
[2024-04-23 05:00] LABS: EOSINOPHILS # (AUTO) 0.3 K/ul (0.0-0.7); EOSINOPHILS % (AUTO) 5.7 % (0.0-7.0); HEMATOCRIT 35.7 % (37.0-47.0); HEMOGLOBIN 10.6 g/dl (12.0-16.0); IMMATURE GRANULOCYTE % (AUTO) 0.4 % (0.0-5.0); LYMPHOCYTES # (AUTO) 0.6 K/uL (0.60-3.4); LYMPHOCYTES % (AUTO) 11.5 (10.0-50.0); MEAN CORPUSCULAR HEMOGLOBIN 29.9 pg (27.0-31.0); MEAN CORPUSCULAR HGB CONC 29.7 (31.8-35.4); MEAN CORPUSCULAR VOLUME 100.8 fl (81.0-99.0); MONOCYTES # (AUTO) 0.5 K/uL (0.4-2.0); MONOCYTES % (AUTO) 8.8 (0-10); NEUTROPHILS # (AUTO) 3.8 K/ul (2.0-6.9); NEUTROPHILS % (AUTO) 73.6 % (42.2-75.2); PLATELET COUNT 187 10^3/uL (140-440); RDW COEFFICIENT OF VARIATION 13.9 % (11.6-14.8); RED BLOOD COUNT 3.54 10^6/ul (4.20-5.40); WHITE BLOOD COUNT 5.13 K/ul (4.6-10.2)
[2024-04-23 05:15] LABS: ALANINE AMINOTRANSFERASE 8.7 U/L (0-35); ALBUMIN 3.13 g/dL (3.5-5.0); ALKALINE PHOSPHATASE 80.6 U/L (53-141); ASPARTATE AMINO TRANSFERASE 24.1 U/L (14-36); BILIRUBIN,TOTAL 0.26 mg/dL (0.2-1.3); BLOOD UREA NITROGEN 10.4 mg/dL (7-17); CALCIUM 8.59 mg/dL (8.4-10.2); CARBON DIOXIDE 35.8 mmol/L (22-30.0); CREATININE 0.92 mg/dL (0.60-1.30); GLUCOSE 114.3 mg/dL (74-106); POTASSIUM 3.96 mmol/L (3.5-5.1); SODIUM 136.6 mmol/L (134.5-145); TOTAL PROTEIN 6.14 g/dL (6.3-8.2)
--- NOTE | 2024-04-23 08:46 | DCSUM ---
Admission Date Admission Date: 04/20/24 Discharge Date Discharge Date: 04/23/24 Admission Diagnosis Admission Diagnosis: 1. Umbilical cellulitis 2. Conjunctivitis, bilateral 3. Urinary symptoms 4. COPD 5. Hypothyroidism 6. Anxiety Discharge Diagnosis Discharge Diagnosis: 1. Umbilical cellulitis - Improving 2. Conjunctivitis, bilateral - Improving 3. Urinary symptoms - Ruled out, negative culture 4. COPD - chronic, stable 5. Hypothyroidism - chronic, stable 6. Anxiety - chronic, stable 7. Hyperkalemia - Resolved Hospital Provider Hospital Provider: JASS CORONA, [facility] Primary Care Physician Primary Care Physician: TESS LANDAVERDE PA-C Summary of History and Physical Summary of History and Physical: 73 yo female with pmh of COPD requiring 2L oxygen continuous, parkinson's, obesity, and hyperlipidemia presented to the ER with wound to her umbilicus. States that she initially had an area on her L breast that is healed now, but over the past 3 days the umbilicus became red and itchy. The last 2 days 3 small wounds developed and began draining with green discharge. Denies fever that she is aware of. Has not been seen by PCP. CT completed and showed cellulitis without abscess. Started on IV vancomycin, wound cultures and blood cultures obtained. Patient reports urinary urgency and dysuria. UA was negative. Reported usually requires culture to determine if UTI present. Admitted to med/surg observation. Hospital Course Subjective: During stay, patient was treated for umbilical cellulitis with vancomycin Q12H IVPB. Wound culture showed growth of staph aureus with sensitivity to vancomycin. Erythema has improved. Drainage is present but less on the bandage each day. Also noted to have conjunctivitis with green discharge. Treated with erythromycin ointment. Improving. Patient reported urinary symptoms on admission. UA negative. Urine culture negative. Yesterday, potassium was high at 5.6. Patient on beta cesar and SSRI likely contributing. Treated with insulin, dextrose, and calcium gluconate. Resolved yesterday evening. No changes to home medications. Dc with clindamycin x 10 days, erythromycin ointment x 4 days, Silvadene cream twice a day for 10 days. Patient requesting home health for nursing care for dressing changes. Discussed to follow-up with PCP this week for referral to wound care. Appearance: Pleasant, No Apparent Distress and Alert HEENT: MMM and Supple CVS: No Murmur Abdomen: Soft, Non-Tender and No Distention Respiratory: No Dyspnea Extremities: Other (+2 PITTING EDEMA BLE) Vital Signs: Most Recent Vital Signs Temperature 97.8 F 04/23/24 04:12 Temperature Source Temporal Artery Scan 04/23/24 04:12 Temperature Source Temporal Artery Scan 04/20/24 13:57 Pulse Rate 98 04/23/24 04:12 Respiratory Rate 21 H 04/23/24 04:12 Blood Pressure 137/96 H 04/23/24 04:12 Blood Pressure Mean 109 04/23/24 04:12 Blood Pressure Left Arm 120/60 04/20/24 17:43 Blood Pressure Location Left Arm 04/23/24 04:12 Blood Pressure Position Sitting 04/23/24 04:12 O2 Sat by Pulse Oximetry 95 04/23/24 04:12 Oxygen Delivery Method Nasal Cannula 04/23/24 07:26 Oxygen Flow Rate 2 04/23/24 04:12 Height 5 ft 4 in 04/20/24 17:43 Weight 154.1 kg 04/20/24 17:43 Telemetry Type Remote Telemetry 04/23/24 01:00 Telemetry Monitoring Continues 04/23/24 01:00 Telemetry Heart Rate 78 04/23/24 01:00 EKG DE Interval 0.17 04/23/24 01:00 EKG QRS Interval 0.06 04/23/24 01:00 Telemetry Strip Reading NSR 04/23/24 01:00 Imaging: EXAM: CT ABDOMEN WITHOUT CONTRAST. CT PELVIS WITHOUT CONTRAST. FINDINGS: Please note that evaluation of the abdominal and pelvic structures is limited due to lack of intravenous contrast. Band-like opacities in the right lung base adjacent to the elevated right diaphragm. Heart is enlarged. Degenerative changes present in the spine and hips. Ankylosis across T12 and L1. Liver enlarged. Gallbladder absent. Pancreas, spleen, adrenal glands are unremarkable. No calcified renal stones or hydronephrosis detected. There is no bowel obstruction or acute inflammation. Appendix not seen. Uterus absent. Bladder normal. Suspect some pelvic floor prolapse. Fatty umbilical hernia axial image 67 without inflammation or bowel involvement. There is no free fluid or free air. Atherosclerotic calcifications present without aneurysm. Subcutaneous edema over the lower abdominal soft tissues and abdominal pannus. No subcutaneous air or drainable fluid collection. IMPRESSION: 1. Cellulitis of the anterior lower abdomen/ abdominal pannus. 2. Hepatomegaly. 3. Fatty umbilical hernia. Lab Results Last 24 Hours: 04/23/24 04/22/24 04/22/24 04:54 18:02 11:23 WBC 5.13 6.30 RBC 3.54 L 3.84 L Hgb 10.6 L 11.5 L Hct 35.7 L 39.7 MCV 100.8 H 103.4 H MCH 29.9 29.9 MCHC 29.7 L 29.0 L RDW Coeff of Staci 13.9 14.0 Plt Count 187 169 Immature Gran % (Auto) 0.4 0.5 Neut % (Auto) 73.6 76.6 H Lymph % (Auto) 11.5 9.7 L [place] % (Auto) 8.8 6.8 Eos % (Auto) 5.7 6.2 Baso % (Auto) 0.0 0.2 Neut # (Auto) 3.8 4.8 Lymph # (Auto) 0.6 0.6 [place] # (Auto) 0.5 0.4 Eos # (Auto) 0.3 0.4 Baso # (Auto) 0.0 0.0 Immature Gran # (Auto) 0.0 0.0 Sodium 136.6 134.0 L 134.0 L Potassium 3.96 4.55 5.63 H Chloride 98.0 95.8 L 98.1 Carbon Dioxide 35.8 H 34.8 H 33.8 H Anion Gap 6.76 7.95 7.73 BUN 10.4 10.3 10.2 Creatinine 0.92 0.93 0.81 Estimated GFR (MDRD) 60.00 59.00 70.00 BUN/Creatinine Ratio 11.30 11.07 12.59 Glucose 114.3 H 114.5 H 113.3 H Calcium 8.59 9.09 8.52 Total Bilirubin 0.26 0.71 AST 24.1 31.9 ALT 8.7 8.1 Alkaline Phosphatase 80.6 72.9 Total Protein 6.14 L 7.35 Albumin 3.13 L 3.65 Globulin 3.01 3.70 Albumin/Globulin Ratio 1.03 0.98 Vancomycin Trough 04/22/24 08:50 WBC RBC Hgb Hct MCV MCH MCHC RDW Coeff of Staci Plt Count Immature Gran % (Auto) Neut % (Auto) Lymph % (Auto) [place] % (Auto) Eos % (Auto) Baso % (Auto) Neut # (Auto) Lymph # (Auto) [place] # (Auto) Eos # (Auto) Baso # (Auto) Immature Gran # (Auto) Sodium Potassium Chloride Carbon Dioxide Anion Gap BUN Creatinine Estimated GFR (MDRD) BUN/Creatinine Ratio Glucose Calcium Total Bilirubin AST ALT Alkaline Phosphatase Total Protein Albumin Globulin Albumin/Globulin Ratio Vancomycin Trough 16.148 Discharge Instructions Discharge Planning: Discharge Planning > 40 minutes If patient is discharged with left ventricular systolic dysfunction: na Discharged with a beta cesar? [] If no, why not? [] Discharged with an petr/arb? [] If no, why not? [] Diagnosis: Cellulitis Diet: Cardiac diet Activity: as tolerated Follow-up with PCP this week Medications: Clindamycin 300 mg every 8 hours x 10 days Erythromycin ointment apply to both eyes every 8 hours x 4 days Silvedine cream apple twice a day x 10 days Discharge Medications: Medications at Discharge (Home Meds & RX) carbidopa 25 mg-levodopa 100 mg tablet (Sinemet) 1 ea PO QID 11/15/13 meclizine 25 mg tablet (Antivert) 1 tab PO BID 11/15/13 montelukast 10 mg tablet (Singulair) 10 mg PO DAILY 11/15/13 sumatriptan succinate 100 mg tablet (Imitrex) 100 mg PO PRN migraine 11/15/13 albuterol sulfate 90 mcg/actuation aerosol inhaler (ProAir HFA) 2 puff inha lation Q6H PRN shortness of air 01/24/18 [id number] 150 unit tablet (Beano) 1 ea PO TID 01/24/18 esomeprazole magnesium 40 mg capsule,delayed release (Nexium) 40 mg PO BID 01/24/18 gabapentin 800 mg tablet 800 mg PO QID 07/12/19 memantine ER 28 mg-donepezil 10 mg capsule sprinkle,ext.release 24 hr (Namzaric) 1 cap PO DAILY 07/12/19 multivitamin 1 tab PO DAILY 07/12/19 quetiapine 50 mg tablet 100 mg PO BEDTIME 07/12/19 duloxetine 30 mg capsule,delayed release 30 mg PO DAILY 03/20/21 levothyroxine 112 mcg tablet 112 mcg PO DAILY 03/20/21 metoprolol succinate 50 mg tablet,extended release 24 hr 50 mg PO DAILY 03/20/21 tizanidine 4 mg tablet 4 mg PO BEDTIME 04/25/21 hydrocodone 10 mg-acetaminophen 325 mg tablet 1 tab PO Q4-6H PRN pain 01/12/23 lorazepam 2 mg tablet 2 mg PO TID PRN anxiety 01/12/23 meloxicam 15 mg tablet 15 mg PO QDAY 01/12/23 simvastatin 20 mg tablet 40 mg PO DAILY 01/12/23 ondansetron 4 mg disintegrating tablet 4 mg PO Q6H PRN nausea and vomiting #30 tabs 03/23/24 blood sugar diagnostic (iwoca Ultra Test strips) 04/20/24 dicyclomine 20 mg tablet 20 mg PO 4XD 04/20/24 ergocalciferol (vitamin D2) 1,250 mcg (50,000 unit) capsule 1,250 mcg PO WEEKLY 04/20/24 Discharge Plan Discharge Discharge Orders: Discharge Patient (ONCE); Ordered 04/23/24 Ordered By: BANDAR VERMA Activity Restrictions/Additional Instructions: Diagnosis: Cellulitis Diet: Cardiac diet Activity: as tolerated Follow-up with PCP this week Medications: Clindamycin 300 mg every 8 hours x 10 days Erythromycin ointment apply to both eyes every 8 hours x 4 days Silvedine cream apple twice a day x 10 days Instructions: Cellulitis (GEN) Patient Disposition: HOME WITH FAMILY CARE Prescriptions: New erythromycin 5 mg/gram (0.5 %) Ointment 1 applic ophthalmic (eye) Q8HR 5 Days Qty: 1 0RF clindamycin HCl 300 mg capsule 300 mg PO Q8H 10 Days Qty: 30 0RF silver sulfadiazine [Silvadene] 1 % cream 1 applic topical BID 10 Days Qty: 25 0RF Rx Instructions: apply a 1.5 mm thickness Continued meclizine [Antivert] 25 MG tablet 1 tab PO BID montelukast [Singulair] 10 MG tablet 10 mg PO DAILY carbidopa-levodopa [Sinemet] 1 EACH tablet 1 ea PO QID sumatriptan succinate [Imitrex] 100 MG tablet 100 mg PO PRN Rx Instructions: at bedtime simvastatin 20 mg tablet 40 mg PO DAILY tizanidine 4 mg tablet 4 mg PO BEDTIME ondansetron 4 mg tablet,disintegrating 4 mg PO Q6H PRN (Reason: nausea and vomiting) Qty: 30 0RF esomeprazole magnesium [Nexium] 40 MG capsule,delayed release(DR/EC) 40 mg PO BID albuterol sulfate [ProAir HFA] 200 PUFF/8.5 GM HFA aerosol inhaler 2 puff inhalation Q6H PRN (Reason: shortness of air) Beano 150 UNIT tablet 1 ea PO TID multivitamin Tablet 1 tab PO DAILY gabapentin 800 mg Tablet 800 mg PO QID quetiapine 50 mg Tablet 100 mg PO BEDTIME Namzaric 28-10 mg Capsule,Sprinkle,Er 24hr 1 cap PO DAILY lorazepam 2 mg tablet 2 mg PO TID PRN (Reason: anxiety) metoprolol succinate 50 mg tablet extended release 24 hr 50 mg PO DAILY Patient Comments: TAKE 1 TABLET BY MOUTH EVERY DAY levothyroxine 112 mcg tablet 112 mcg PO DAILY Patient Comments: TAKE 1 TABLET BY MOUTH EVERY DAY duloxetine 30 mg capsule,delayed release(DR/EC) 30 mg PO DAILY (DME) OneTouch Ultra Test Strip MISCELLANEOUS DAILY dicyclomine 20 mg tablet 20 mg PO 4XD ergocalciferol (vitamin D2) 1,250 mcg (50,000 unit) capsule 1,250 mcg PO WEEKLY meloxicam 15 mg tablet 15 mg PO QDAY hydrocodone-acetaminophen 10-325 mg tablet 1 tab PO Q4-6H PRN (Reason: pain) Did you review [place] [employer] [facility] for ALL controlled substances?: No Discussed opioids are addictive and Narcan is available by prescription or from pharmacy.: No Condition: Stable
[2024-04-23 14:22] VITALS: BP 132/59; PULSE 82; RESP 17; TEMP 97.9
[2024-04-23] MEDS ORDERED: CLEOCIN PO SCH (21:00)
== END 2024-04-23 16:40 | disposition home or self-care (01) ==
LOC: ED 13:39 → MEDSURG B 13:39
PROVIDERS: ADMIT Hospitalist; ATTEND Nurse Practitioner Family
DX: G89.29 Other chronic pain; R39.15 Urgency of urination; R30.0 Dysuria; Z20.822 Contact with and (suspected) exposure to COVID-19; Z79.899 Other long term (current) drug therapy; H10.33 Unspecified acute conjunctivitis, bilateral; E03.9 Hypothyroidism, unspecified; R16.0 Hepatomegaly, not elsewhere classified; E87.5 Hyperkalemia; M54.50 Low back pain, unspecified; G20.C Parkinsonism, unspecified; E78.5 Hyperlipidemia, unspecified; Z51.81 Encounter for therapeutic drug level monitoring; N18.9 Chronic kidney disease, unspecified; J44.9 Chronic obstructive pulmonary disease, unspecified; L03.316 Cellulitis of umbilicus; Z99.81 Dependence on supplemental oxygen; A49.02 Methicillin resistant Staphylococcus aureus infection, unspecified site; E66.01 Morbid (severe) obesity due to excess calories; K42.9 Umbilical hernia without obstruction or gangrene; F41.9 Anxiety disorder, unspecified

== ENCOUNTER 2025-04-27 10:58 | Observation (INO) ==
[2025-04-27 11:23] LABS: SARS COV-2 RNA RAPID NAAT POSITIVE (NEGATIVE)
[2025-04-27] MEDS ORDERED: SOLU-MEDROL 125 MG IM ONE (11:25)
[2025-04-27 11:35] LABS: MOLECULAR FLU A NEGATIVE BY NAAT (NEGATIVE); MOLECULAR FLU B NEGATIVE BY NAAT (NEGATIVE)
[2025-04-27 11:37] LABS: IMMATURE GRANULOCYTE # (AUTO) 0.0 (0.0-1.0); IMMATURE GRANULOCYTE % (AUTO) 0.3 % (0.0-5.0); RDW COEFFICIENT OF VARIATION 14.6 % (11.6-14.8)
[2025-04-27] MEDS: SODIUM CHLORIDE 500 ML IV ONE (11:47)
[2025-04-27] MEDS: ZITHROMAX PO ONE (11:47)
[2025-04-27] MEDS: TYLENOL PO STA (11:47)
[2025-04-27] MEDS: SOLU-MEDROL 125 MG IVP ONE (11:47)
[2025-04-27 11:49] LABS: CREATININE 1.17 mg/dL (0.60-1.30)
[2025-04-27 11:50] LABS: RSV MOLECULAR NEGATIVE BY NAAT (NEGATIVE)
--- NOTE | 2025-04-27 12:06 | DI ---
EXAM: FRONTAL CHEST RADIOGRAPH(S). 1 VIEW. History: Shortness of breath Comparison: 04/20/2024 IMPRESSION: Heart size normal. No pneumothorax or pleural effusion. Elevated right hemidiaphragm. Right basilar scarring or atelectasis.
--- NOTE | 2025-04-27 13:35 | ED.PDOC ---
General [facility] ED Provider: Dr. RAYO RAZA MD Chief Complaint: Respiratory Complaint Stated Complaint: 74 years old female with history of COPD on 2 L nasal cannula home oxygen come to emergency room for shortness of breath. Patient reports that she has been feeling more short of breath and having dry cough with fever so she came to emergency room for evaluation. She has been using her inhalers as usual but they are not helping with her shortness of breath. Patient is also complaining of some sore throat. She denies any chest pain no nausea or vomiting no changes in the bowel or urine. Time Seen by Provider: 04/27/25 11:20 Information Source: Patient Primary Care Provider: EYAL JONES Nursing and Triage Documentation Reviewed and Agree: Yes Opioid Naive vs. Tolerant What is Opioid Naive?: *Opioid Naive implies the patient is not already taking opioids or not chronically receiving opioids on a daily basis. *PRN dosing is not "usually" associated with tolerance. *Patients are at higher risk of over-sedation and aspiration. What is Opioid Tolerant?: *Opioid Tolerance implies less than the expected response to an opioid. *Acquired tolerance is defined by the patient taking 60mg of oral morphine daily (or equianalgesic dose of another opioid) for 1 week or more. *Often associated with chronic pain. *May take more than usual dose to achieve desired pain control. Review of Systems Review Of Systems Constitutional: Reports No symptoms All Other Systems: Reviewed and Negative [facility] Medical History (Updated 04/27/25 @ 13:35 by RAYO RAZA MD) Parkinson disease G20 - Parkinson's disease (ICD-10) Chronic obstructive pulmonary disease for 5 years J44.9 - Chronic obstructive pulmonary disease, unspecified (ICD-10) Hyperlipidemia for years E78.5 - Hyperlipidemia, unspecified (ICD-10) Heart disease I51.9 - Heart disease, unspecified (ICD-10) Acute arthritis M19.90 - Unspecified osteoarthritis, unspecified site (ICD-10) Family History Mother Hypertension, Onset Age: 30 Other Seasonal allergies Social History Smoking and tobacco status: Never smoker Substance use type: does not use Surgical History History of gastrointestinal surgery gallbladder age 22 Z98.890 - Other specified postprocedural states (ICD-10) History of tubal ligation 1971 Z98.51 - Tubal ligation status (ICD-10) Status post hysterectomy at age 22 Z90.710 - Acquired absence of both cervix and uterus (ICD-10) Back Female Reproductive History Menstrual Hx Hysterectomy: Yes Hx Tubal Ligation: No Physical Exam Physical Exam Appearance: Reports Ill-appearing Ill-appearing: Mild ENT: Reports Ears normal, Nose normal and Erythema (Pharyngeal) Respiratory: Reports Airway patent and Breath sounds diminished (Bilaterally with mild to moderate wheezes in all lung crow) Cardiovascular: Reports RRR, Pulses normal and No rub GI/: Reports Soft, Nontender and No masses Musculoskeletal: Reports Normal strength and ROM intact Psychiatric: Reports Affect appropriate Course Course 04/27/25 11:32 04/27/25 11:32 Orders, Labs, Meds: Lab Review 04/27/25 04/27/25 11:08 11:32 WBC 6.87 RBC 4.26 Hgb 12.7 Hct 41.9 MCV 98.4 MCH 29.8 MCHC 30.3 L RDW Coeff of Staci 14.6 Plt Count 210 Immature Gran % (Auto) 0.3 Neut % (Auto) 79.4 H Lymph % (Auto) 10.0 [place] % (Auto) 8.7 Eos % (Auto) 1.0 Baso % (Auto) 0.6 Neut # (Auto) 5.5 Lymph # (Auto) 0.7 [place] # (Auto) 0.6 Eos # (Auto) 0.1 Baso # (Auto) 0.0 Immature Gran # (Auto) 0.0 Sodium 136.7 Potassium 4.53 Chloride 95.9 L Carbon Dioxide 33.4 H Anion Gap 11.93 BUN 12.9 Creatinine 1.17 Estimated GFR (MDRD) 45.00 BUN/Creatinine Ratio 11.02 Glucose 142.7 H Calcium 9.17 Total Bilirubin 0.42 AST 27.4 ALT 9.9 Alkaline Phosphatase 88.5 Total Protein 7.08 Albumin 3.69 Globulin 3.39 Albumin/Globulin Ratio 1.08 Influ A Molecular Assay Negative by naat Influ B Molecular Assay Negative by naat RSV Antigen Negative by naat SARS CoV-2 RNA Rapid DARWIN Positive H Orders Category Date Time Status OBSERVATION [PLACE PATIENT OBSERVATION] .TO MEDSURG ADMISSION 04/27/25 13:35 Active (MONITORED BED) TELEMETRY MONITORING TELE CARE 04/27/25 13:35 Active CBC W/ AUTO DIFF Stat LAB 04/27/25 11:32 Completed CMP [COMPREHENSIVE METABOLIC PANEL] Stat LAB 04/27/25 11:32 Completed MOLECULAR FLU A & B [FLU A/B MOLECULAR] Stat LAB 04/27/25 11:08 Completed MOLECULAR GROUP A STREP Stat LAB 04/27/25 11:11 Completed RSV Stat LAB 04/27/25 11:08 Completed SARS COV-2 RNA RAPID DARWIN Stat LAB 04/27/25 11:08 Completed Acetaminophen [Tylenol] Meds 04/27/25 11:25 Discontinued 650 mg PO ONCE STA Azithromycin [Zithromax] Meds 04/27/25 11:25 Discontinued 500 mg PO ONCE ONE Methylprednisolone Sod Succ/Pf [Solu-Medrol 125 mg] Meds 04/27/25 11:38 Discontinued 125 mg IVP ONCE ONE Sodium Chloride 0.9% [Sodium Chloride] 500 ml Meds 04/27/25 11:38 Discontinued IV BOLUS CXR [CHEST, 1V AP ONLY] Stat RADS 04/27/25 11:24 Completed Medications Discontinued Medications Generic Name Dose Route Start Last Admin Trade Name Freq PRN Reason Stop Dose Admin Acetaminophen 650 mg 04/27/25 11:25 04/27/25 11:47 Acetaminophen 325 Mg Tablet PO 04/27/25 11:26 650 mg ONCE STA Administration Azithromycin 500 mg 04/27/25 11:25 04/27/25 11:47 Azithromycin 250 Mg Tablet PO 04/27/25 11:26 500 mg ONCE ONE Administration Sodium Chloride 500 mls @ 500 mls/hr 04/27/25 11:38 04/27/25 11:47 Sodium Chloride IV 04/27/25 12:37 500 mls/hr BOLUS ONE Administration Methylprednisolone Sodium Succinate 125 mg 04/27/25 11:38 04/27/25 11:47 Methylprednisolone Sod Succ/Pf 125 Mg/2 Ml Vial IVP 04/27/25 11:39 125 mg ONCE ONE Administration Vital Signs: Temp Pulse Resp BP Pulse Ox 04/27/25 10:59 101.8 F H 118 H 20 138/74 94 L Patient tested positive for COVID-19 which is the most likely reason for her COPD exacerbation. She received oral azithromycin along with IV Solu-Medrol and 500 mL of NS bolus. Due to the patient comorbidities she will need to be monitored overnight I spoke with the hospitalist on-call, Anne discussed the patient case with her and she accepted the patient to be admitted under observation overnight. Discharge Plan Discharge Patient Disposition: PLACED OBSERVATION Discharge Problem: Acute exacerbation of chronic obstructive pulmonary disease, COVID-19 Did you review [place] [employer] [employer] for ALL controlled substances?: Not Applicable ED Provider: RAYO RAZA Condition: Stable
[2025-04-27] MEDS ORDERED: TYLENOL PO PRN (14:22)
--- NOTE | 2025-04-27 14:24 | PCM ---
Date of Service Date Seen by Provider: 04/27/25 Time Seen by Provider: 13:45 Admit Day/Time Admission Date: 04/27/25 Admission Time: 13:35 Reason for Admission Chief Complaint: COVID/COPD EXACERBATION Hospital Provider Hospital Provider: ANTONIO NELSON PA-C, [facility] Primary Care Physician Primary Care Physician: EYAL JONES History of Present Illness History of Present Illness: Patient is a 74 feamle from home with pmhx of chronic respiratory failure due to COPD on 2L, ckd, GERD, hypothyroidism, hypertension, hyperlipidemia, migraines who presents to ER with 3 day history of sob, cough, and fever. In ER she had a normal cxr and labs overall unremarkable. Was noted to be low 90s saturation, given duoneb with improvement. Tested positive for covid. Pt denies covid vaccine. States she had covid the first time around and was hospitalized, but overall did ok. Patient feels weak. Daughter has been staying with her lately. Daughter has concerns regarding her going home and would like for her to be observed overnight to ensure she does not decline given her COPD status. She received solumedrol and azithromycin in ER. Admitted to med surg. Case Discussed With Case Discussed With: Patient's case was discussed with the ER Physicians, Dr. Mcdaniel. [facility] Medical History Parkinson disease G20 - Parkinson's disease (ICD-10) Chronic obstructive pulmonary disease for 5 years J44.9 - Chronic obstructive pulmonary disease, unspecified (ICD-10) Hyperlipidemia for years E78.5 - Hyperlipidemia, unspecified (ICD-10) Heart disease I51.9 - Heart disease, unspecified (ICD-10) Acute arthritis M19.90 - Unspecified osteoarthritis, unspecified site (ICD-10) Surgical History History of gastrointestinal surgery gallbladder age 22 Z98.890 - Other specified postprocedural states (ICD-10) History of tubal ligation 1971 Z98.51 - Tubal ligation status (ICD-10) Status post hysterectomy at age 22 Z90.710 - Acquired absence of both cervix and uterus (ICD-10) Back Family History Mother Hypertension, Onset Age: 30 Other Seasonal allergies Social History Smoking and tobacco status: Never smoker Substance use type: does not use Allergies Allergies Allergy/AdvReac Type Severity Reaction Status Date / Time Sulfa (Sulfonamide AdvReac Itching Verified 04/27/25 11:03 Antibiotics) sulfamethoxazole (From AdvReac Itching Verified 04/27/25 11:03 Bactrim) trimethoprim (From Bactrim) AdvReac Swelling Verified 04/27/25 11:03 Current Medications Home Medications Acetaminophen (Acetaminophen 325 Mg Tablet) 650 mg PO Q4H PRN PRN Reason: Mild Pain Azithromycin (Azithromycin 250 Mg Tablet) 500 mg PO DAILY MIKEY Stop: 05/01/25 08:59 Enoxaparin Sodium (Enoxaparin Sodium 40 Mg/0.4 Ml Syr) 40 mg SUBCUT DAILY MIKEY Methylprednisolone Sodium Succinate (Methylprednisolone Sod Succ/Pf 40 Mg/Ml Vial) 40 mg IVP Q8HR MIKEY carbidopa 25 mg-levodopa 100 mg tablet (Sinemet) 1 ea PO QID 11/15/13 [History Confirmed 04/27/25] meclizine 25 mg tablet (Antivert) 1 tab PO BID 11/15/13 [History Confirmed 04/27/25] montelukast 10 mg tablet (Singulair) 10 mg PO DAILY 11/15/13 [History Confirmed 04/27/25] sumatriptan succinate 100 mg tablet (Imitrex) 100 mg PO PRN migraine 11/15/13 [History Confirmed 04/27/25] albuterol sulfate 90 mcg/actuation aerosol inhaler (ProAir HFA) 2 puff inhalation Q6H PRN shortness of air 01/24/18 [History Confirmed 04/27/25] hjyzj-i-fytahiovxujmy 150 unit tablet (Beano) 1 ea PO TID PRN indigestion 01/24/18 [History Confirmed 04/27/25] esomeprazole magnesium 40 mg capsule,delayed release (Nexium) 40 mg PO BID 01/24/18 [History Confirmed 04/27/25] gabapentin 800 mg tablet 800 mg PO QID 07/12/19 [History Confirmed 04/27/25] memantine ER 28 mg-donepezil 10 mg capsule sprinkle,ext.release 24 hr (Namzaric) 1 cap PO DAILY 07/12/19 [History Confirmed 04/27/25] multivitamin 1 tab PO DAILY 07/12/19 [History Confirmed 04/27/25] duloxetine 30 mg capsule,delayed release 30 mg PO DAILY 03/20/21 [History Confirmed 04/27/25] levothyroxine 112 mcg tablet 112 mcg PO DAILY 03/20/21 [History Confirmed 04/27/25] metoprolol succinate 50 mg tablet,extended release 24 hr 50 mg PO DAILY 03/20/21 [History Confirmed 04/27/25] tizanidine 4 mg tablet 4 mg PO BEDTIME 04/25/21 [History Confirmed 04/27/25] lorazepam 2 mg tablet 2 mg PO TID PRN anxiety 01/12/23 [History Confirmed 04/27/25] meloxicam 15 mg tablet 15 mg PO QDAY 01/12/23 [History Confirmed 04/27/25] simvastatin 20 mg tablet 40 mg PO DAILY 01/12/23 [History Confirmed 04/27/25] ondansetron 4 mg disintegrating tablet 4 mg PO Q6H PRN nausea and vomiting #30 tabs 03/23/24 [Rx Confirmed 04/27/25] blood sugar diagnostic (EnCoateuch Ultra Test strips) 04/20/24 [History Confirmed 04/27/25] dicyclomine 20 mg tablet 20 mg PO 4XD 04/20/24 [History Confirmed 04/27/25] cholecalciferol (vitamin D3) 25 mcg (1,000 unit) tablet (PureVita Vitamin D3) 25 mcg PO BID 04/27/25 [History Confirmed 04/27/25] nirmatrelvir 150 mg (10)-ritonavir 100 mg (10) tablets in a dose pack (Paxlovid) See Rx Instructions PO .COMPLEX #20 ea 04/27/25 [Rx] oxycodone-acetaminophen 7.5 mg-325 mg tablet 1 tab PO 4XD 04/27/25 [History Confirmed 04/27/25] Opioid Naive vs. Tolerant Does Patient Take Opioids?: Yes Is Patient Opioid Naive?: No What is Opioid Naive?: *Opioid Naive implies the patient is not already taking opioids or not chronic ally receiving opioids on a daily basis. *PRN dosing is not "usually" associated with tolerance. *Patients are at higher risk of over-sedation and aspiration. Is Patient Opioid Tolerant?: No What is Opioid Tolerant?: *Opioid Tolerance implies less than the expected response to an opioid. *Acquired tolerance is defined by the patient taking 60mg of oral morphine daily (or equianalgesic dose of another opioid) for 1 week or more. *Often associated with chronic pain. *May take more than usual dose to achieve desired pain control. Review of Systems Constitutional: Reports Fever, Fatigue and Weakness Head: Reports Normocephalic and Atraumatic Cardiovascular: Denies Chest pain Respiratory: Reports Cough and Shortness of air Gastrointestinal: Reports Diarrhea; Denies Nausea, Vomiting, Abdominal pain or Melena Genitourinary: Denies Dysuria or Frequency Neurological: Reports Weakness; Denies Headache, Dizziness or Syncope Physical examination Most Recent Vital Signs: Most Recent Vital Signs Temperature 101.8 F H 04/27/25 10:59 Temperature Source Infrared 04/27/25 10:59 Pulse Rate 118 H 04/27/25 10:59 Respiratory Rate 20 04/27/25 10:59 Blood Pressure 138/74 04/27/25 10:59 O2 Sat by Pulse Oximetry 94 L 04/27/25 10:59 Height 5 ft 4 in 04/27/25 10:59 Weight 124.284 kg 04/27/25 10:59 Telemetry Heart Rate 78 04/23/24 01:00 Appearance: Positive No Apparent Distress, Alert and Oriented x3 and Obese Skin: Positive [place], Warm and Good Turgor HEENT: Positive Normocephalic and Atraumatic Neck: Positive Supple and Midline Trachea Chest/Lungs: Positive Other (speaks full sentences, nonlabored breathing, mild wheezes ); Negative Rales or Rhonci Heart: Positive RRR GI/: Positive Soft, Nontender, Bowel Sounds Normal and No Distention Extremities: Positive Other (RLE in boot ); Negative Edema Neurological: Positive Cranial Nerves Intact, Alert, Oriented and Muscle Strength 5/5 in Upper and Lower Extremities Bilaterally Psychiatric: Positive Oriented x4, Appropriate Mood and Appropriate Affect Labs This Visit Labs This Visit: Labs This Visit 04/27/25 04/27/25 11:08 11:32 WBC 6.87 RBC 4.26 Hgb 12.7 Hct 41.9 MCV 98.4 MCH 29.8 MCHC 30.3 L RDW Coeff of Staci 14.6 Plt Count 210 Immature Gran % (Auto) 0.3 Neut % (Auto) 79.4 H Lymph % (Auto) 10.0 [place] % (Auto) 8.7 Eos % (Auto) 1.0 Baso % (Auto) 0.6 Neut # (Auto) 5.5 Lymph # (Auto) 0.7 [place] # (Auto) 0.6 Eos # (Auto) 0.1 Baso # (Auto) 0.0 Immature Gran # (Auto) 0.0 Sodium 136.7 Potassium 4.53 Chloride 95.9 L Carbon Dioxide 33.4 H Anion Gap 11.93 BUN 12.9 Creatinine 1.17 Estimated GFR (MDRD) 45.00 BUN/Creatinine Ratio 11.02 Glucose 142.7 H Calcium 9.17 Total Bilirubin 0.42 AST 27.4 ALT 9.9 Alkaline Phosphatase 88.5 Total Protein 7.08 Albumin 3.69 Globulin 3.39 Albumin/Globulin Ratio 1.08 Influ A Molecular Assay Negative by naat Influ B Molecular Assay Negative by naat RSV Antigen Negative by naat SARS CoV-2 RNA Rapid DARWIN Positive H Microbiology This Visit 04/27/25 11:11 Throat Group A Strep Molecular Assay - Final Imaging Imaging: EXAM: FRONTAL CHEST RADIOGRAPH(S). 1 VIEW. History: Shortness of breath Comparison: 04/20/2024 IMPRESSION: Heart size normal. No pneumothorax or pleural effusion. Elevated right hemidiaphragm. Right basilar scarring or atelectasis. Review Statement Review Statement: I have independently reviewed and interpreted the labs/EKGs/imaging that were ordered by the ER provider. I have reviewed all outside records that are available currently in our EMR including imaging/notes/labs from previous visits. Plan Plan: 1. Acute COPD exacerbation due to Covid 19 - Will send in paxlovid and daughter can crab picker to go ahead and start. Will cont zithromax and steroids. Duonebs prn. Tylenol for fever. 2. Covid 19 - Will start paxlovid. Isolation precautions. Tylenol prn. 3. Parkinsons - Cont home meds 4. Hypothyroidism - Cont home meds 5. Dementia - Cont home meds 6. Hypertension - Cont home meds 7. Hyperlipidemia - Cont home meds 8. GERD - Cont home meds 9. Chronic pain - Cont home meds DVT Prophylaxis: Lovenox Time Spent: Greater than 80 minutes spent with patient, 50% of the time spent with this patient was devoted to counseling and coordination of care. [facility] minutes spent discussing advance care planning. Admit to: Obs Discussed Plan of Care with Dr. Marina Sarkar. Medications Medication Orders: Medications Ordered Category Date Time Status Acetaminophen [Tylenol] Meds 04/27/25 14:22 Ordered 650 mg PO Q4H PRN Enoxaparin Sodium [Lovenox] Meds 04/28/25 09:00 Ordered 40 mg SUBCUT DAILY
[2025-04-27 15:15] VITALS: BMI 49.4
[2025-04-27] MEDS ORDERED: PERCOCET 7.5-325 PO PRN (15:28)
[2025-04-27] MEDS ORDERED: DUONEB NEB PRN (15:30)
[2025-04-27] MEDS ORDERED: NEURONTIN PO SCH (17:00)
[2025-04-27] MEDS: PROTONIX PO SCH (17:07)
[2025-04-27] MEDS: ATIVAN PO PRN (17:07)
[2025-04-27] MEDS: BENTYL PO SCH (17:08)
[2025-04-27] MEDS: SINEMET 25-100 PO SCH (17:08)
[2025-04-27] MEDS: [UNRECOGNIZED DRUG - OTHER] PO SCH (17:59)
[2025-04-27] MEDS ORDERED: IMODIUM PO PRN (20:22)
[2025-04-27] MEDS ORDERED: NON-FORMULARY MEDICATION (Esomeprazole Magnesium [Nexium] 40 MG capsule,delayed release(DR PO SCH (21:00)
[2025-04-27] MEDS ORDERED: ZOCOR PO SCH (21:00)
[2025-04-27] MEDS: ZANAFLEX PO SCH (21:09)
[2025-04-27] MEDS: ANTIVERT PO SCH (21:09)
[2025-04-27] MEDS: VITAMIN D PO SCH (21:09)
[2025-04-27] MEDS: NEURONTIN PO SCH (21:09)
[2025-04-28 04:51] VITALS: RESP 13
[2025-04-28 05:00] VITALS: BP 146/79; PULSE 85; TEMP 97.5
[2025-04-28] MEDS: SYNTHROID PO SCH (05:19)
[2025-04-28 05:30] LABS: IMMATURE GRANULOCYTE # (AUTO) 0.0 (0.0-1.0); IMMATURE GRANULOCYTE % (AUTO) 0.5 % (0.0-5.0); RDW COEFFICIENT OF VARIATION 14.6 % (11.6-14.8)
[2025-04-28 05:48] LABS: CREATININE 1.04 mg/dL (0.60-1.30)
[2025-04-28] MEDS: LOVENOX SUBCUT SCH (08:16)
[2025-04-28] MEDS: SOLU-MEDROL 40 MG IVP SCH (08:16)
[2025-04-28] MEDS: TOPROL XL PO SCH (08:17)
[2025-04-28] MEDS: MOBIC PO SCH (08:17)
[2025-04-28] MEDS: ZITHROMAX PO SCH (08:17)
[2025-04-28] MEDS: CYMBALTA PO SCH (08:17)
[2025-04-28] MEDS: NAMENDA PO SCH (08:18)
[2025-04-28] MEDS: SINGULAIR PO SCH (08:18)
[2025-04-28] MEDS: ARICEPT PO SCH (08:18)
--- NOTE | 2025-04-28 08:49 | DCSUM ---
Admission Date Admission Date: 04/27/25 Discharge Date Discharge Date: 04/28/25 Admission Diagnosis Admission Diagnosis: 1. Acute COPD exacerbation due to Covid 19 2. Covid 19 Discharge Diagnosis Discharge Diagnosis: 1. Acute COPD exacerbation due to Covid 19 - improved 2. Covid 19 3. Parkinsons - Cont home meds 4. Hypothyroidism - Cont home meds 5. Dementia - Cont home meds 6. Hypertension - Cont home meds 7. Hyperlipidemia - Cont home meds 8. GERD - Cont home meds 9. Chronic pain - Cont home meds Hospital Provider Hospital Provider: ANTONIO NELSON PA-C, [facility] Primary Care Physician Primary Care Physician: EYAL JONES Summary of History and Physical Summary of History and Physical: Patient is a 74 feamle from home with pmhx of chronic respiratory failure due to COPD on 2L, ckd, GERD, hypothyroidism, hypertension, hyperlipidemia, migraines who presents to ER with 3 day history of sob, cough, and fever. In ER she had a normal cxr and labs overall unremarkable. Was noted to be low 90s saturation, given duoneb with improvement. Tested positive for covid. Pt denies covid vaccine. States she had covid the first time around and was hospitalized, but overall did ok. Patient feels weak. Daughter has been staying with her lately. Daughter has concerns regarding her going home and would like for her to be observed overnight to ensure she does not decline given her COPD status. She received solumedrol and azithromycin in ER. Admitted to med surg. Hospital Course Subjective: Patient was treated with Solu-Medrol and azithromycin due to her underlying COPD. She was able to start Paxlovid as her daughter brought it in for her. Holding her statin while taking it. She has remained on her 2 L. She states she is feeling better today. No events overnight. She is comfortable with discharge to home. Will send in azithromycin and prednisone. We discussed about red flags on when to return such as spiking high fever, worsening shortness of breath. She will follow-up with PCP. Patient agrees to plan of care. Appearance: Pleasant, No Apparent Distress and Alert HEENT: Supple CVS: Other (RRR) Abdomen: Soft, Non-Tender and No Distention Respiratory: No Accessory Muscle Use Extremities: No Edema Vital Signs: Most Recent Vital Signs Temperature 97.5 F L 04/28/25 04:59 Temperature Source Oral 04/28/25 04:59 Temperature Source Infrared 04/27/25 10:59 Pulse Rate 85 04/28/25 04:59 Respiratory Rate 13 04/28/25 04:59 Blood Pressure 146/79 H 04/28/25 04:59 Blood Pressure Mean 101 04/28/25 04:59 Blood Pressure Left Arm 110/75 04/27/25 14:36 Blood Pressure Location Left Arm 04/28/25 04:59 Blood Pressure Position Supine 04/28/25 04:59 O2 Sat by Pulse Oximetry 97 04/28/25 05:48 Oxygen Delivery Method Nasal Cannula 04/28/25 08:00 Oxygen Flow Rate 2 04/28/25 05:48 Height 5 ft 4 in 04/27/25 14:36 Weight 130.7 kg 04/27/25 14:36 Telemetry Type Remote Telemetry 04/28/25 07:00 Telemetry Monitoring Continues 04/28/25 07:00 Telemetry Heart Rate 74 04/28/25 07:00 Telemetry SPO2 100 04/28/25 07:00 EKG OH Interval 0.14 04/28/25 07:00 EKG QRS Interval 0.08 04/28/25 07:00 Telemetry Strip Reading SR 04/28/25 07:00 Imaging: EXAM: FRONTAL CHEST RADIOGRAPH(S). 1 VIEW. History: Shortness of breath Comparison: 04/20/2024 IMPRESSION: Heart size normal. No pneumothorax or pleural effusion. Elevated right hemidiaphragm. Right basilar scarring or atelectasis Lab Results Last 24 Hours: 04/28/25 04/27/25 04/27/25 05:24 11:32 11:08 WBC 5.48 6.87 RBC 4.29 4.26 Hgb 12.7 12.7 Hct 41.9 41.9 MCV 97.7 98.4 MCH 29.6 29.8 MCHC 30.3 L 30.3 L RDW Coeff of Staci 14.6 14.6 Plt Count 225 210 Immature Gran % (Auto) 0.5 0.3 Neut % (Auto) 82.3 H 79.4 H Lymph % (Auto) 13.5 10.0 [place] % (Auto) 3.5 8.7 Eos % (Auto) 0.0 1.0 Baso % (Auto) 0.2 0.6 Neut # (Auto) 4.5 5.5 Lymph # (Auto) 0.7 0.7 [place] # (Auto) 0.2 L 0.6 Eos # (Auto) 0.0 0.1 Baso # (Auto) 0.0 0.0 Immature Gran # (Auto) 0.0 0.0 Sodium 137.7 136.7 Potassium 4.24 4.53 Chloride 97.8 L 95.9 L Carbon Dioxide 33.9 H 33.4 H Anion Gap 10.24 11.93 BUN 13.1 12.9 Creatinine 1.04 1.17 Estimated GFR (MDRD) 52.00 45.00 BUN/Creatinine Ratio 12.59 11.02 Glucose 194.4 H D 142.7 H Calcium 9.00 9.17 Total Bilirubin 0.31 0.42 AST 28.9 27.4 ALT 16.3 9.9 Alkaline Phosphatase 100.9 88.5 Total Protein 7.42 7.08 Albumin 3.74 3.69 Globulin 3.68 3.39 Albumin/Globulin Ratio 1.01 1.08 Influ A Molecular Assay Negative by naat Influ B Molecular Assay Negative by naat RSV Antigen Negative by naat SARS CoV-2 RNA Rapid DARWIN Positive H Discharge Instructions Discharge Planning: Discharge Planning > [address] Marina Sarkar. Discharge Medications: Medications at Discharge (Home Meds & RX) carbidopa 25 mg-levodopa 100 mg tablet (Sinemet) 1 ea PO QID 11/15/13 meclizine 25 mg tablet (Antivert) 1 tab PO BID 11/15/13 montelukast 10 mg tablet (Singulair) 10 mg PO DAILY 11/15/13 sumatriptan succinate 100 mg tablet (Imitrex) 100 mg PO PRN migraine 11/15/13 albuterol sulfate 90 mcg/actuation aerosol inhaler (ProAir HFA) 2 puff inhalation Q6H PRN shortness of air 01/24/18 [id number] 150 unit tablet (Beano) 1 ea PO TID PRN indigestion 01/24/18 esomeprazole magnesium 40 mg capsule,delayed release (Nexium) 40 mg PO BID 01/24/18 gabapentin 800 mg tablet 800 mg PO QID 07/12/19 memantine ER 28 mg-donepezil 10 mg capsule sprinkle,ext.release 24 hr (Namzaric) 1 cap PO DAILY 07/12/19 multivitamin 1 tab PO DAILY 07/12/19 duloxetine 30 mg capsule,delayed release 30 mg PO DAILY 03/20/21 levothyroxine 112 mcg tablet 112 mcg PO DAILY 03/20/21 metoprolol succinate 50 mg tablet,extended release 24 hr 50 mg PO DAILY 03/20/21 tizanidine 4 mg tablet 4 mg PO BEDTIME 04/25/21 lorazepam 2 mg tablet 2 mg PO TID PRN anxiety 01/12/23 meloxicam 15 mg tablet 15 mg PO QDAY 01/12/23 simvastatin 20 mg tablet 40 mg PO BEDTIME 01/12/23 ondansetron 4 mg disintegrating tablet 4 mg PO Q6H PRN nausea and vomiting #30 tabs 03/23/24 blood sugar diagnostic (Learning Hyper[employer] Ultra Test strips) 04/20/24 dicyclomine 20 mg tablet 20 mg PO 4XD 04/20/24 cholecalciferol (vitamin D3) 25 mcg (1,000 unit) tablet (PureVita Vitamin D3) 25 mcg PO BID 04/27/25 nirmatrelvir 150 mg (10)-ritonavir 100 mg (10) tablets in a dose pack (Paxlovid) See Rx Instructions PO .COMPLEX #20 ea 04/27/25 oxycodone-acetaminophen 7.5 mg-325 mg tablet 1 tab PO 4XD 04/27/25 azithromycin 500 mg tablet (Zithromax) 500 mg PO DAILY 3 days #3 tabs 04/28/25 prednisone 20 mg tablet 20 mg PO BID 5 days #10 tabs 04/28/25 Discharge Plan Discharge Discharge Orders: Discharge Patient (ONCE); Ordered 04/28/25 Ordered By: ANTONIO NELSON Activity Restrictions/Additional Instructions: DISCHARGE TO HOME DX: COPD EXACERBATION, COVID ISOLATE F/U WITH PCP PHARMACY: [facility], ANTIBIOTICS HAVE BEEN SENT IN TAKE PAXLOVID FOR COVID HOLD SIMVASTATIN UNTIL PAXLOVID IS COMPLETE Instructions: COPD (Chronic Obstructive Pulmonary Disease) (DC) Care Plan Goals: Problem: Impaired Respiratory Status Goal: Exhibit optimal respiratory function Instructions: Activities as tolerated Apply oxygen as ordered Elevate head of bed Notify MD of increased congestion Patient Disposition: HOME SELF-CARE Prescriptions: New Paxlovid 150 mg (10)- 100 mg (10) tablets,dose pack See Rx Instructions .ROUTE .COMPLEX Qty: 20 0RF Rx Instructions: orally per package directions azithromycin [Zithromax] 500 mg tablet 500 mg PO DAILY 3 Days Qty: 3 0RF Rx Instructions: START 04/29 prednisone 20 mg tablet 20 mg PO BID 5 Days Qty: 10 0RF benzonatate 100 mg capsule 100 mg PO TID PRN (Reason: cough) Qty: 30 0RF Continued meclizine [Antivert] 25 MG tablet 1 tab PO BID montelukast [Singulair] 10 MG tablet 10 mg PO DAILY carbidopa-levodopa [Sinemet] 1 EACH tablet 1 ea PO QID sumatriptan succinate [Imitrex] 100 MG tablet 100 mg PO PRN Rx Instructions: at bedtime simvastatin 20 mg tablet 40 mg PO BEDTIME tizanidine 4 mg tablet 4 mg PO BEDTIME ondansetron 4 mg tablet,disintegrating 4 mg PO Q6H PRN (Reason: nausea and vomiting) Qty: 30 0RF cholecalciferol (vitamin D3) [PureVita Vitamin D3] 25 mcg (1,000 unit) tablet 25 mcg PO BID oxycodone-acetaminophen 7.5-325 mg tablet 1 tab PO 4XD esomeprazole magnesium [Nexium] 40 MG capsule,delayed release(DR/EC) 40 mg PO BID albuterol sulfate [ProAir HFA] 200 PUFF/8.5 GM HFA aerosol inhaler 2 puff inhalation Q6H PRN (Reason: shortness of air) Beano 150 UNIT tablet 1 ea PO TID PRN (Reason: indigestion) multivitamin Tablet 1 tab PO DAILY gabapentin 800 mg Tablet 800 mg PO QID memantine-donepezil [Namzaric] 28-10 mg Capsule,Sprinkle,Er 24hr 1 cap PO DAILY lorazepam 2 mg tablet 2 mg PO TID PRN (Reason: anxiety) metoprolol succinate 50 mg tablet extended release 24 hr 50 mg PO DAILY Patient Comments: TAKE 1 TABLET BY MOUTH EVERY DAY levothyroxine 112 mcg tablet 112 mcg PO DAILY Patient Comments: TAKE 1 TABLET BY MOUTH EVERY DAY duloxetine 30 mg capsule,delayed release(DR/EC) 30 mg PO DAILY dicyclomine 20 mg tablet 20 mg PO 4XD meloxicam 15 mg tablet 15 mg PO QDAY No Action (DME) OneTouch Ultra Test Strip MISCELLANEOUS DAILY Did you review [place] BACKUP ADMINISTRATIVE COORDINATOR for ALL controlled substances?: Not Applicable Discussed opioids are addictive and Narcan is available by prescription or from pharmacy.: No Condition: Stable
[2025-04-28] MEDS ORDERED: [UNRECOGNIZED DRUG - OTHER] PO SCH (09:00)
[2025-04-28] MEDS ORDERED: MEMANTINE DONEPEZIL PO SCH (09:00)
== END 2025-04-28 11:04 | disposition home or self-care (01) ==
LOC: SCU 10:58 → ED 10:58 → SCU 14:03
PROVIDERS: ADMIT Hospitalist; ATTEND Physician Assistant
DX: Z79.899 Other long term (current) drug therapy; I10 Essential (primary) hypertension; F03.90 Unspecified dementia, unspecified severity, without behavioral disturbance, psychotic disturbance, mood disturbance, and anxiety; G89.29 Other chronic pain; Z74.3 Need for continuous supervision; E03.9 Hypothyroidism, unspecified; Z99.81 Dependence on supplemental oxygen; J44.0 Chronic obstructive pulmonary disease with (acute) lower respiratory infection; E78.5 Hyperlipidemia, unspecified; U09.9 Post COVID-19 condition, unspecified; Z51.81 Encounter for therapeutic drug level monitoring; G20.C Parkinsonism, unspecified; K21.9 Gastro-esophageal reflux disease without esophagitis; J44.1 Chronic obstructive pulmonary disease with (acute) exacerbation; R06.02 Shortness of breath; Z99.89 Dependence on other enabling machines and devices